=== PATIENT | female | born 1940 | race Caucasian/White ===

== ENCOUNTER 2021-08-24 20:44 | Emergency (ER) | payer MEDICARE, OTHER, SELFPAY ==
[2021-08-24 20:56] VITALS: BP 166/87; PULSE 82; RESP 20; TEMP 36.8; O2SAT 97
--- NOTE | 2021-08-24 21:00 | DI.RAD_ITS ---
Exam(s) XR CHEST 2V PA LATERAL EXAM: XR CHEST 2V PA LATERAL CLINICAL HISTORY: tachy 2 days ago. TECHNIQUE: 2D digital imaging was performed. COMPARISON: No exams were available for comparison FINDINGS: Heart size is normal. The mediastinum is not widened. Pulmonary hyperinflation again noted. No new infiltrates nor pleural effusions. No pulmonary edema. IMPRESSION: No acute pulmonary findings.Hyperinflation. No significant change compared to 08/24/2021. DATA REPOSITORY: RADIATION DOSE DELIVERED:
--- NOTE | 2021-08-24 21:00 | RT.EKG_ITS ---
APPROVED REPORT Exam: Resting ECG Reason for Exam: tachy Patient Location: E HR:80 bpm ECG Measurements Heart Rate 80 AXIS SC 156 P 52 QRSd 97 QRS -51 QT 396 T 39 QTc 458 Conclusion Sinus rhythm...normal P axis, V-rate 60- 99 Left anterior fascicular block...axis(240,-40), init forces inf
[2021-08-24 21:01] VITALS: RESP 18
[2021-08-24 21:23] LABS: Abs Immature Grans 0.01 10^3/uL (0.0-0.06); Absolute Basophil Count 0.03 10^3/uL (0.0-0.2); Absolute Eosinophil Count 0.07 10^3/uL (0.0-0.7); Absolute Lymphocyte Count 1.43 10^3/uL (1.2-3.4); Absolute Monocyte Count 0.52 10^3/uL (0.1-0.8); Absolute Neutrophil Count 4.91 10^3/uL (1.2-6.7); Basophils % 0.4; HCT 44.1 % (36.0-46.0); HGB 14.2 g/dL (11.2-15.7); Immature Grans % 0.1; Lymphocytes % 20.5; MCH 30.3 pg (27.0-33.0); MCHC 32.2 % (32.0-36.0); MCV 94.2 fL (80-95); MPV 11.2 fL (8.0-11.0); Monocytes % 7.5; Neutrophils % 70.5; Nucleated RBC 0 %; Platelet Count 187 10^3/uL (130-400); RBC 4.68 10^6/uL (3.93-5.22); RDW 13.2 % (11.7-14.6); RDW-SD 45.5 fL; WBC 6.97 10^3/uL (4.4-10.8)
--- NOTE | 2021-08-24 21:36 | ED.GENADUL_ITS ---
Discharge Plan Disposition Patient Disposition: HOME Condition: Stable Discharge Details Clinical Impression: Tachycardia Primary Care Provider: Unknown,Unknown ED Provider: Elmer Mcbride Home Meds and New Rx's Prescriptions: Continued Support Hose 1 ea Topical DAILY Qty: 2 RF: 1 (DME) FreeStyle Test 1 EACH strip 1 ea Miscellaneous DAILY Qty: 1 RF: 1 No Action PreserVision AREDS-2 250-90-40-1 mg capsule 1 tab PO BID RF: 0 Discharge Instructions Instructions: Tachycardia (ED) Additional Instructions: Work-up in the ER does not reveal any obvious emergent process. I have completed the paperwork for a Holter monitor, you will be contacted tomorrow to set this up. I have also placed you on the care management list to help expedite outpatient primary care follow-up. Please watch for new or worsening symptoms and return to the ER for any concerns. Discharge Data Discharge Date/Time-TO BE ENTERED AT DEPARTURE: 08/24/21 23:30 Medical Decision Making This is an 81-year-old female, denies significant past medical history, reports that her heart rate and blood pressure were elevated on 08-22. Nothing preceded the symptoms. Patient is currently asymptomatic. Clinically she appears well, nontoxic, slightly hypertensive but otherwise unremarkable. Patient is agreeable to initiating a cardiac work-up, given the duration of her symptoms, I believe a single troponin and EKG is reasonable. We will also obtain thyroid studies as well as a D-dimer. Laboratory values reveal a D-dimer slightly elevated at 953 otherwise unremarkable, troponin less than 0.05, no leukocytosis, TSH of 2.41. Chest x-ray does not reveal any obvious emergent process. Given the slightly elevated D-dimer will obtain CTA of the chest. CTA unremarkable for PE., mild atelectasis present. Discussed work-up with patient. She remains asymptomatic, blood pressure trending downward nicely. She has no additional questions or concerns and is comfortable discharge at this time. I will place her on the care management list to help expedite outpatient primary care follow-up. Strict discharge and return precautions provided. This documentation was generated using Foxwordyation system, please disregard any oddities of phrase or misspellings. Medical Records Medical records reviewed: Yes I reviewed the patient's medical records. Imaging Data Radiologic Study: Attestation: I personally reviewed and interpreted this imaging study as follows: Imaging: CT Scan Radiologist's impression: PROCEDURE INFORMATION: Exam: CTA Chest With Contrast Exam date and time: 08/24/2021 21:59 Age: 81 years old Clinical indication: Abnormal findings; Abnormal diagnostic tests; Elevated d- dimer; Shortness of breath; Patient HX: SOB, elevated d dimer TECHNIQUE: Imaging protocol: Computed tomographic angiography of the chest with contrast. 3D rendering (Not supervised by radiologist): MIP and/or 3D reconstructed images were created by the technologist. Radiation optimization: All CT scans at this facility use at least one of these dose optimization techniques: automated exposure control; mA and/or kV adjustment per patient size (includes targeted exams where dose is matched to clinical indication); or iterative reconstruction. Contrast material: OMNIPAQUE 350; Contrast volume: 70 ml; Contrast route: INTRAVENOUS (IV); COMPARISON: CR XR CHEST 2V PA LATERAL 08/24/2021 21:55 FINDINGS: Pulmonary arteries: No pulmonary emboli. Aorta: No aortic aneurysm. No aortic dissection. Lungs: Mild dependent subsegmental atelectasis. No airspace consolidation. Minimal scattered ground-glass densities. Pleural spaces: No pneumothorax. No pleural effusion. Heart: No cardiomegaly. No pericardial effusion. Lymph nodes: No enlarged lymph nodes. Adrenal glands: Thickened adrenal glands without measurable nodules, likely hypertrophy. Bones/joints: Degenerative changes in the spine. No acute fracture or subluxation. JUAN SO Preliminary Radiology Report SENIOR TRIAL ATTORNEY (QA) DISCREPANCY? If there is a discrepancy between the preliminary and final interpretation, please notify [facility] via [email or web address]. If you do not have access to our QA portal, call our QA team at [phone] CONFIDENTIALITY STATEMENT This report is intended only for the use of the referring physician, and only in accordance with law, If you received this in error, call [phone] Page 2 of 2 Soft tissues: No suspicious lesions. IMPRESSION: 1. No pulmonary emboli are seen. 2. Mild dependent subsegmental atelectasis. Minor scattered ground-glass densities most likely represent minor edema or microatelectasis, much less likely atypical infection. Radiologic Study #2: Attestation: I personally reviewed and interpreted this imaging study as follows: Imaging: X-Ray Radiologist's impression: PROCEDURE INFORMATION: Exam: XR Chest Exam date and time: 08/24/2021 21:05 Age: 81 years old Clinical indication: Other: Tachy 2 days ago TECHNIQUE: Imaging protocol: XR of the chest. Views: 2 views. COMPARISON: CR CERV SP.WITH OBL OR FLEX/EXT 09/09/2016 16:02 FINDINGS: Lungs: Mild hyperinflation without airspace consolidation. Pleural spaces: No pleural effusion. No pneumothorax. Heart/Mediastinum: No cardiomegaly. Bones/joints: No acute fracture. IMPRESSION: Mild hyperinflation without airspace consolidation. Lab Data Lab results reviewed: Yes I reviewed the patient's lab results. Labs: Laboratory Tests Range/Units 08/24/21 08/24/21 08/24/21 21:18 21:18 21:18 WBC (4.4-10.8) 10^3/uL 6.97 RBC (3.93-5.22) 10^6/uL 4.68 Hgb (11.2-15.7) g/dL 14.2 Hct (36.0-46.0) % 44.1 MCV (80-95) fL 94.2 MCH (27.0-33.0) pg 30.3 MCHC (32.0-36.0) % 32.2 RDW (11.7-14.6) % 13.2 Plt Count (130-400) 10^3/uL 187 MPV (8.0-11.0) fL 11.2 H Immature Gran % 0.1 Neutrophils % 70.5 Lymphocytes % 20.5 Monocytes % 7.5 Eosinophils % 1.0 Basophils % 0.4 Nucleated RBC % % 0 Absolute Neutrophils (1.2-6.7) 10^3/uL 4.91 Absolute Lymphocytes (1.2-3.4) 10^3/uL 1.43 Absolute Monocytes (0.1-0.8) 10^3/uL 0.52 Absolute Eosinophils (0.0-0.7) 10^3/uL 0.07 Absolute Basophils (0.0-0.2) 10^3/uL 0.03 PT (9.3-11.0) sec 10.6 INR (0.9-1.1) 1.1 APTT (21.0-27.5) sec 25.1 D-Dimer (<500) ng/mlFEU 953 H Sodium (136-145) mmol/L 144 Potassium (3.5-5.1) mmol/L 3.7 Chloride (98-107) mmol/L 107 Carbon Dioxide (21.0-32.0) mmol/L 30.5 Anion Gap (3-11) mmol/L 6.5 BUN (7-18) mg/dL 16 Creatinine (0.55-1.02) mg/dL 0.7 Estimated GFR/1.73 m2 (mL/min/1.73m2) >= 60.00 Glucose (74-106) mg/dL 110 H Calcium (8.5-10.1) mg/dL 8.8 Magnesium (1.8-2.4) mg/dL 1.9 Total Bilirubin (0.2-1.0) mg/dL 0.5 AST (15-37) U/L 15 ALT (14-59) U/L 16 Alkaline Phosphatase (46-116) U/L 86 Troponin I (<0.06) ng/mL < 0.05 Total Protein (6.4-8.2) g/dL 7.3 Albumin (3.4-5.0) g/dL 3.7 TSH (0.36-3.74) uIU/mL Range/Units 08/24/21 21:18 WBC (4.4-10.8) 10^3/uL RBC (3.93-5.22) 10^6/uL Hgb (11.2-15.7) g/dL Hct (36.0-46.0) % MCV (80-95) fL MCH (27.0-33.0) pg MCHC (32.0-36.0) % RDW (11.7-14.6) % Plt Count (130-400) 10^3/uL MPV (8.0-11.0) fL Immature Gran % Neutrophils % Lymphocytes % Monocytes % Eosinophils % Basophils % Nucleated RBC % % Absolute Neutrophils (1.2-6.7) 10^3/uL Absolute Lymphocytes (1.2-3.4) 10^3/uL Absolute Monocytes (0.1-0.8) 10^3/uL Absolute Eosinophils (0.0-0.7) 10^3/uL Absolute Basophils (0.0-0.2) 10^3/uL PT (9.3-11.0) sec INR (0.9-1.1) APTT (21.0-27.5) sec D-Dimer (<500) ng/mlFEU Sodium (136-145) mmol/L Potassium (3.5-5.1) mmol/L Chloride (98-107) mmol/L Carbon Dioxide (21.0-32.0) mmol/L Anion Gap (3-11) mmol/L BUN (7-18) mg/dL Creatinine (0.55-1.02) mg/dL Estimated GFR/1.73 m2 (mL/min/1.73m2) Glucose (74-106) mg/dL Calcium (8.5-10.1) mg/dL Magnesium (1.8-2.4) mg/dL Total Bilirubin (0.2-1.0) mg/dL AST (15-37) U/L ALT (14-59) U/L Alkaline Phosphatase (46-116) U/L Troponin I (<0.06) ng/mL Total Protein (6.4-8.2) g/dL Albumin (3.4-5.0) g/dL TSH (0.36-3.74) uIU/mL 2.41 ECG Data Attestation: I personally reviewed and interpreted this ECG (s) as follows: Interpretation: Please see official report by Dr. Yepez. Sinus rhythm, ventricular rate of 80. No STEMI HPI General Mode of arrival: ambulatory . Date/Time Provider Initiated Documentation: 08/24/21 20:53 . Limitations to Documentation: no limitations . Information obtained by: patient . HPI Narrative: This is a 81-year-old female, denies significant past medical history, presenting to the ER today for concern of tachycardia and hypertension on 08-22. On 08-22, blood pressure as high as 181/98 with a pulse of 129. Today blood pressure as high as 172/97 with a heart rate of 95. Patient is currently asymptomatic. She has been checking her blood pressure and heart rate at home regularly. She reported lightheadedness to triage but denies lightheadedness to me. Patient is currently asymptomatic. Denies headache, visual changes, neck pain, chest pain, shortness of breath, abdominal pain, nausea, vomiting, back pain, pain or swelling her legs. She denies any history of DVT, PE, cardiac history or pulmonary history. Patient states that she has not seen her primary care provider in 3 years and therefore they want her to be a new patient and needs to fill out paperwork before she can be seen by them. Related Data Home Medications Medication Instructions Recorded Confirmed FreeStyle Test #1 bottle 01/18/18 vit C 250 mg-vit E 90 mg-zinc 40 1 tab PO BID 08/25/21 mg-copper 1 oz-[id number] capsule Allergies Allergy/AdvReac Type Severity Reaction Status Date / Time tetanus and diphtheria Allergy Intermediate red, Verified 08/25/21 15:42 toxoids swollen arm cyclobenzaprine AdvReac Intermediate Dry Mouth Verified 08/25/21 15:42 oxycodone HCl [From Percocet] AdvReac GI UPSET Verified 08/25/21 15:42 General Stated Complaint: GenMedical ROSA M: 3 Review of Systems Constitutional Constitutional: Denies fatigue, Denies fever(s) and Denies headache(s) Eyes Eyes: Denies change in vision ENT Ears, Nose, Mouth, and Throat: Denies headache(s) and Denies neck pain Cardiovascular Cardiovascular: Denies chest pain and Denies dyspnea Respiratory Respiratory: Denies cough and Denies dyspnea Gastrointestinal Gastrointestinal: Denies abdominal pain, Denies nausea and Denies vomiting Genitourinary Genitourinary: Denies dysuria Musculoskeletal Musculoskeletal: Denies back pain, Denies neck pain, Denies numbness and Denies tingling Integumentary/Breasts Skin/Breast: Denies rash Neurologic Neurologic: Denies headache(s), Denies numbness and Denies tingling Endocrine Endocrine: Denies fatigue [facility] Medical History Abnormal auditory perception (01/11/17) Arthritis Neck, hands, back BMI 34.0-34.9,adult 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 Rojas cystoscopy negative 2015 Recommended repeat UA annually & repeat workup if persistent 3-5 years Osteoarthritis (06/04/15) neck, spine, hands Other hyperlipidemia (06/20/15) LDL >190; CV risk 16.7%, declines meds Stasis dermatitis of both legs (06/04/15) Umbilical hernia (06/04/15) Surgical History Excision, Pilonidal Cyst 1960 Extraction of cataract (07/16/15) Dr. Rae. Right eye with intraocular lens implant Tonsillectomy 1945 Family History Mother , Pulmonary Fibrosis at age 97. Diabetes Osteoporosis Arthritis Constipation Asthma Father , Cancer; bowel at age 64. Diabetes Asthma Other Cancer Social History Smoking/Tobacco Use Status: Never Smoking risk assessment performed?: Yes Alcohol Intake: never Drug use: Never Do you feel safe at home: Yes Do you feel safe in your relationship?: Yes Exam Const General: cooperative, healthy appearing, comfortable and no acute distress Orientation: alert, awake and oriented x3 [facility] Head: normal to inspection, normocephalic and atraumatic Face and sinus: normal facial exam Mouth: oral mucosae normal and moist mucous membranes Eyes General: appearance normal, both eyes and all related structures Conjunctivae: conjunctivae normal Neck Neck: normal visual inspection, full ROM, trachea midline and supple Resp Effort & Inspection: normal respiratory effort and able to speak in complete sentences Auscultation: clear to auscultation bilaterally Cardio Rate: regular rate Rhythm: regular rhythm GI Palpation: soft, not firm, no guarding, no pulsatile masses and nontender Back/Spine/Pelvis Back: No back tenderness Skin General skin exam: no rashes or lesions noted Neuro General: patient alert, patient awake, patient oriented x3, moves all extremities and no focal motor deficits Cognition: normal cognition Speech: speech normal Gait: normal gait Motor: muscle tone normal throughout Sensory Exam: no sensory deficits noted Extrem General: normal to inspection, full ROM, capillary refill normal, no pedal edema and no calf tenderness Psych Appearance: grossly normal Mental Status: mental status grossly normal Course Vital Signs Vital signs: Vital Signs Temperature 36.8 C 08/24/21 20:56 Pulse 82 08/24/21 20:56 Respiratory Rate 20 08/24/21 20:56 Blood Pressure 166/87 H 08/24/21 20:56 Pulse Oximetry 97 08/24/21 20:56 Temperature 36.8 C 08/24/21 20:56 Pulse 82 08/24/21 20:56 Respiratory Rate 18 08/24/21 21:01 Respiratory Effort Non-Labored 08/24/21 21:01 Respiratory Depth Normal 08/24/21 21:01 Respiratory Pattern Normal 08/24/21 21:01 Blood Pressure 166/87 H 08/24/21 20:56 Blood Pressure Position Sitting 08/24/21 20:56 Pulse Oximetry 97 08/24/21 20:56 Pain Level 0 08/24/21 20:56 Lab/Test Results Lab/Test Results: Laboratory Tests Range/Units 08/24/21 21:18 WBC (4.4-10.8) 10^3/uL 6.97 RBC (3.93-5.22) 10^6/uL 4.68 Hgb (11.2-15.7) g/dL 14.2 Hct (36.0-46.0) % 44.1 MCV (80-95) fL 94.2 MCH (27.0-33.0) pg 30.3 MCHC (32.0-36.0) % 32.2 RDW (11.7-14.6) % 13.2 Plt Count (130-400) 10^3/uL 187 MPV (8.0-11.0) fL 11.2 H Immature Gran % 0.1 Neutrophils % 70.5 Lymphocytes % 20.5 Monocytes % 7.5 Eosinophils % 1.0 Basophils % 0.4 Nucleated RBC % % 0 Absolute Neutrophils (1.2-6.7) 10^3/uL 4.91 Absolute Lymphocytes (1.2-3.4) 10^3/uL 1.43 Absolute Monocytes (0.1-0.8) 10^3/uL 0.52 Absolute Eosinophils (0.0-0.7) 10^3/uL 0.07 Absolute Basophils (0.0-0.2) 10^3/uL 0.03
[2021-08-24 21:39] LABS: ALT 16 U/L (14-59); AST 15 U/L (15-37); Albumin 3.7 g/dL (3.4-5.0); Alkaline Phosphatase 86 U/L (46-116); Anion Gap 6.5 mmol/L (3-11); BUN 16 mg/dL (7-18); Bilirubin, Total 0.5 mg/dL (0.2-1.0); CO2 30.5 mmol/L (21.0-32.0); CREATININE 0.7 mg/dL (0.55-1.02); Calcium 8.8 mg/dL (8.5-10.1); Chloride 107 mmol/L (98-107); Glucose 110 mg/dL (74-106); Magnesium 1.9 mg/dL (1.8-2.4); Potassium 3.7 mmol/L (3.5-5.1); Sodium 144 mmol/L (136-145); Total Protein 7.3 g/dL (6.4-8.2)
[2021-08-24 21:40] LABS: Troponin I < 0.05 ng/mL (<0.06)
[2021-08-24 21:41] LABS: INR 1.1 (0.9-1.1); PTT Activated 25.1 sec (21.0-27.5); Prothrombin Time 10.6 sec (9.3-11.0)
[2021-08-24 21:44] LABS: TSH (W/Ref FT4) 2.41 uIU/mL (0.36-3.74)
--- NOTE | 2021-08-24 21:45 | DI.CT_ITS ---
Exam(s) CT CHEST PE CTA EXAM: CT CHEST PE CTA CLINICAL HISTORY: tachy, elevated dimer. TECHNIQUE: Imaging Protocol: CT angiography of the chest was performed using pulmonary embolus tristin col. Multi planar reconstructions were performed. CONTRAST MATERIAL: Intravenous: Omnipaque 350 Contrast volume: 70 cc COMPARISON: Chest x-ray 08/24/2021 FINDINGS: PULMONARY ARTERIES: There are no intraluminal filling defects to suggest the presence of acute pulmon jose m emboli. LUNGS: Mild increased markings are noted in the medial aspect of the posterior basal segment of the r ight lower lobe. There are no pleural effusions. No nodules evident in the right lung. There is a suggestion of a 6 mm nodule in the lateral basal segment of the left lower lobe. There are no pleural effusions. MEDIASTINUM: There is no hilar nor mediastinal adenopathy. Visualized thyroid unremarkable. CARDIAC: Heart size is upper normal. There is no pericardial effusion.Caliber of the thoracic aorta is within normal limits. There is no significant shift of the interventricular septum. PARTIALLY VISUALIZED UPPERMOST ABDOMEN: Mild thickening of the genu of the left adrenal gland noted, possibly small adenoma. Spleen size normal OSSEOUS: No significant osseous lesions.. IMPRESSION: 1. No evidence of acute pulmonary emboli. No evidence of pulmonary infarction.No pleural effusions. 2. No intrathoracic adenopathy. 3. Heart size upper normal. RADIATION DOSE DELIVERED: 382.38mGy.cm Total DLP DATA REPOSITORY: All CT scans at this facility are submitted to the National Radiology Data Registry (NRDR) Dose Index Registry (DIR) with the [employer] (ACR). RADIATION OPTIMIZATION: All CT scans at this facility use at least one of these dose optimization te chniques: automated exposure control; mA and/or kV adjustment per patient size (includes targeted exa ms where dose is matched to clinical indication); or iterative reconstruction.
--- NOTE | 2021-08-24 21:50 | NUR.NOTE ---
Referral to Care Management to help re-establish pcp at [facility]. She hasn't been seen in a few years and they will only see her as a new patient. (per patient). Dx Tachycardia. [facility] provider would like her seen sooner rather than later.Nursing Note:
[2021-08-24 21:55] LABS: D-Dimer 953 ng/mlFEU (<500)
[2021-08-24] MEDS: Omnipaque 350 MG/ML 100 ML BTL IJ (22:19)
[2021-08-24] MEDS: Normal Saline Flush 10 ML SYR IVP (22:22)
--- NOTE | 2021-08-24 22:57 | DI.VRAD_ITS ---
PROCEDURE INFORMATION: Exam: CTA Chest With Contrast Exam date and time: 08/24/2021 21:59 Age: 81 years old Clinical indication: Abnormal findings; Abnormal diagnostic tests; Elevated d-dimer; Shortness of breath; Patient HX: SOB, elevated d dimer TECHNIQUE: Imaging protocol: Computed tomographic angiography of the chest with contrast. 3D rendering (Not supervised by radiologist): MIP and/or 3D reconstructed images were created by the technologist. Radiation optimization: All CT scans at this facility use at least one of these dose optimization techniques: automated exposure control; mA and/or kV adjustment per patient size (includes targeted exams where dose is matched to clinical indication); or iterative reconstruction. Contrast material: OMNIPAQUE 350; Contrast volume: 70 ml; Contrast route: INTRAVENOUS (IV); COMPARISON: CR XR CHEST 2V PA LATERAL 08/24/2021 21:55 FINDINGS: Pulmonary arteries: No pulmonary emboli. Aorta: No aortic aneurysm. No aortic dissection. Lungs: Mild dependent subsegmental atelectasis. No airspace consolidation. Minimal scattered ground-glass densities. Pleural spaces: No pneumothorax. No pleural effusion. Heart: No cardiomegaly. No pericardial effusion. Lymph nodes: No enlarged lymph nodes. Adrenal glands: Thickened adrenal glands without measurable nodules, likely hypertrophy. Bones/joints: Degenerative changes in the spine. No acute fracture or subluxation. Soft tissues: No suspicious lesions. IMPRESSION: 1. No pulmonary emboli are seen. 2. Mild dependent subsegmental atelectasis. Minor scattered ground-glass densities most likely represent minor edema or microatelectasis, much less likely atypical infection. Dictated and Authenticated by: Amita Morelos MD. Ordering:DESIRAE Payne MD
--- NOTE | 2021-08-24 22:57 | DI.VRAD_ITS ---
PROCEDURE INFORMATION: Exam: XR Chest Exam date and time: 08/24/2021 21:05 Age: 81 years old Clinical indication: Other: Tachy 2 days ago TECHNIQUE: Imaging protocol: XR of the chest. Views: 2 views. COMPARISON: CR CERV SP.WITH OBL OR FLEX/EXT 09/09/2016 16:02 FINDINGS: Lungs: Mild hyperinflation without airspace consolidation. Pleural spaces: No pleural effusion. No pneumothorax. Heart/Mediastinum: No cardiomegaly. Bones/joints: No acute fracture. IMPRESSION: Mild hyperinflation without airspace consolidation. Dictated and Authenticated by: Amita Morelos MD. Ordering:DESIRAE Payne MD
--- NOTE | 2021-08-24 23:11 | NUR.NOTE ---
Requisition faxed to [facility] for and appt to have a 48hr holter monitor placed for tachycardia.Nursing Note:
[2021-08-24 23:26] VITALS: BP 166/87; PULSE 82; RESP 18; TEMP 36.8; O2SAT 97
== END 2021-08-24 23:30 | disposition home or self-care (01) ==
PROVIDERS: Emergency Provider Physician Assistant
DX: R00.0 Tachycardia, unspecified (principal); R42 Dizziness and giddiness; R79.1 Abnormal coagulation profile
CPT/HCPCS: 71275; 80053; 93005; 99285; 71046; 83735; 84443; 84484; 85025; 85379; 85610; 85730; 93010; 99284; J3490

== ENCOUNTER 2021-08-26 01:28 | Outpatient (RCR) | payer MEDICARE, OTHER, SELFPAY ==
--- NOTE | 2021-08-26 16:15 | HOLTER_ITS ---
APPROVED REPORT Conclusion This is a 48-hour Holter monitor ordered for tachycardia Rhythm throughout was sinus with an average heart rate of 89. Minimum was 44, maximum 123 There were very rare ventricular ectopic beats There were rare atrial premature beats. There were several self-limited atrial runs, the longest of which was 15 beats in duration There was no atrial fibrillation, no high-grade AV block, no pauses greater than 3 seconds No patient symptoms were reported
== END 2021-08-31 23:59 | disposition home or self-care (01) ==
LOC: RT 01:28
PROVIDERS: Visit Provider Nurse Practitioner Adult Health
DX: R00.0 Tachycardia, unspecified (principal)
CPT/HCPCS: 93225

== ENCOUNTER 2021-09-01 10:44 | Outpatient (RCR) | payer MEDICARE, OTHER, MEDICAID, SELFPAY | END 2021-09-30 23:59 | disposition home or self-care (01) | LOC: RT 10:44 | PROVIDERS: PCP Nurse Practitioner Adult Health; Referring Provider Nurse Practitioner Adult Health; Visit Provider Internal Medicine Cardiovascular Disease | DX: R00.0 Tachycardia, unspecified (principal); I49.1 Atrial premature depolarization | CPT/HCPCS: 93227; 93226 ==

== ENCOUNTER 2021-11-25 04:17 | Outpatient (CLI) | payer MEDICARE, OTHER, MEDICAID, SELFPAY ==
[2021-11-25 11:30] LABS: Calculated LDL 195 mg/dL (<100); Cholesterol 247 mg/dL (<200); HDL Cholesterol 38 mg/dL (40-60); Triglyceride 73 mg/dL (<150)
== END 2021-11-25 04:18 | disposition home or self-care (01) ==
LOC: LBO 04:18
PROVIDERS: PCP Nurse Practitioner Adult Health; Visit Provider Nurse Practitioner Adult Health
DX: E78.49 Other hyperlipidemia (principal)
CPT/HCPCS: 36415; 80061

== ENCOUNTER 2022-02-20 18:41 | Outpatient (REF) | payer MEDICARE, OTHER, MEDICAID, SELFPAY ==
[2022-02-20 19:58] LABS: Bilirubin Negative (Negative); Blood Small (Negative); Clarity Clear (Clear); Glucose Negative (Negative); Ketones Trace mg/dL (Negative); Leukocyte Esterase Negative (Negative); Nitrite Negative (Negative); Specific Gravity >= 1.030 (1.005-1.025); Urobilinogen 0.2 EU/dL (Up TO 0.2); pH 5.5 (5-8)
[2022-02-20 20:26] LABS: Bacteria Few HPF (Negative); C & S Indicated? No; Casts Negative LPF (Negative); Crystals Negative HPF (Negative); Epithelial Cells Few HPF (Negative); Mucus Negative (Negative); RBC Negative HPF (0-2); WBC 0-2 HPF (0-5)
== END 2022-02-20 18:42 | disposition home or self-care (01) ==
LOC: LBN 18:41
PROVIDERS: PCP Nurse Practitioner Adult Health; Visit Provider Nurse Practitioner Adult Health
DX: R31.29 Other microscopic hematuria (principal)
CPT/HCPCS: 81003; 81015

== ENCOUNTER 2022-04-20 02:42 | Outpatient (CLI) | payer MEDICARE, OTHER, MEDICAID, SELFPAY ==
[2022-04-20 15:25] LABS: Creatine Kinase 98 U/L (26-192)
[2022-04-20 23:23] LABS: Calculated LDL 135 mg/dL (<100); Cholesterol 193 mg/dL (<200); HDL Cholesterol 40 mg/dL (40-60); Triglyceride 94 mg/dL (<150)
== END 2022-04-20 02:43 | disposition home or self-care (01) ==
LOC: LBO 02:43
PROVIDERS: Absent Provider Nurse Practitioner Adult Health; PCP Nurse Practitioner Adult Health; Referring Provider Nurse Practitioner Adult Health; Visit Provider Nurse Practitioner Adult Health
DX: E78.00 Pure hypercholesterolemia, unspecified (principal); M79.18 Myalgia, other site; Z51.81 Encounter for therapeutic drug level monitoring; E78.49 Other hyperlipidemia
CPT/HCPCS: 36415; 80061; 82550

== ENCOUNTER → 2022-08-24 14:50 | Outpatient (BNVA) | payer MEDICARE, OTHER, MEDICAID, SELFPAY | PROVIDERS: PCP Nurse Practitioner Adult Health; Referring Provider Nurse Practitioner Adult Health; Visit Provider Surgery | DX: K46.9 Unspecified abdominal hernia without obstruction or gangrene (principal) | CPT/HCPCS: 99213 ==

== ENCOUNTER 2023-01-08 02:42 | Outpatient (CLI) | payer MEDICARE, MEDICAID, SELFPAY ==
[2023-01-08 11:04] LABS: Bilirubin Negative (Negative); Blood Trace-lysed (Negative); Clarity Sl Cloudy (Clear); Glucose Negative (Negative); Ketones Trace mg/dL (Negative); Leukocyte Esterase Trace (Negative); Nitrite Negative (Negative); Specific Gravity >= 1.030 (1.005-1.025); Urobilinogen 0.2 mg/dL (Up to 0.2); pH 5.5 (5-8)
[2023-01-08 11:16] LABS: Bacteria Few HPF (Negative); Epithelial Cells Moderate HPF (Negative)
[2023-01-08 11:17] LABS: C & S Indicated? No/Sq. Contamination; Casts Negative LPF (Negative); Mucus Trace (Negative)
[2023-01-08 12:01] LABS: Hemoglobin A1C 5.8 % (<5.7)
[2023-01-08 14:25] LABS: Anion Gap 11.2 mmol/L (3-11); BUN 22 mg/dL (7-18); CO2 28.8 mmol/L (21.0-32.0); CREATININE 0.7 mg/dL (0.55-1.02); Calcium 9.1 mg/dL (8.5-10.1); Calculated LDL 139 mg/dL (<100); Chloride 104 mmol/L (98-107); Cholesterol 194 mg/dL (<200); Estimated GFR 86.83 (mL/min/1.73m2); Glucose 127 mg/dL (74-106); HDL Cholesterol 42 mg/dL (40-60); Potassium 3.5 mmol/L (3.5-5.1); Sodium 144 mmol/L (136-145); Triglyceride 68 mg/dL (<150)
== END 2023-01-08 02:43 | disposition home or self-care (01) ==
LOC: LBO 02:43
PROVIDERS: PCP Nurse Practitioner Adult Health; Referring Provider Nurse Practitioner Adult Health; Visit Provider Nurse Practitioner Adult Health
DX: E78.00 Pure hypercholesterolemia, unspecified (principal); R03.0 Elevated blood-pressure reading, without diagnosis of hypertension; R31.29 Other microscopic hematuria; R73.03 Prediabetes
CPT/HCPCS: 36415; 80048; 80061; 81003; 81015; 83036

== ENCOUNTER 2023-02-11 00:36 | Outpatient (CLI) | payer MEDICARE, MEDICAID, SELFPAY ==
--- NOTE | 2023-02-11 15:15 | DI.CT_ITS ---
Exam(s) CT CHEST WO EXAM: CT CHEST WO CLINICAL HISTORY: F/U 08/24/2021 CT chest ?6mm nodule LLL, ABNL CT CHEST R93.89 TECHNIQUE: Imaging Protocol: Axial computed tomography images with coronal and sagittal reformatted images were created and reviewed CONTRAST MATERIAL: Intravenous: Omnipaque 350 Contrast volume:structured data ml. COMPARISON: CT CT CHEST PE CTA from 08/24/2021 FINDINGS: Pulmonary parenchyma: No consolidation. No dominant measurable mass. Nodule again noted at anterior left lung base measuring 5 millimeters. No additional nodules. Tracheobronchial tree: No bronchiectasis or mucous plugging. Mediastinum and Theresa: No dominant adenopathy or fluid collection. Pleura: No effusion or pneumothorax. Heart: The heart is mildly dilated. Mild coronary artery calcifications are seen. Aorta: Thoracic aorta non-dilated. Tortuous. Mild atherosclerotic changes. Upper abdomen: Unremarkable. Bones: Degenerative changes. Soft tissues: Unremarkable. IMPRESSION: Stable 5 millimeter nodule left lung base. For a low risk patient, no follow-up recommended. Right high risk patient, consider follow-up in 1 year. RADIATION DOSE DELIVERED: 503.88mGy.cm Total DLP DATA REPOSITORY: All CT scans at this facility are submitted to the National Radiology Data Registry (NRDR) Dose Index Registry (DIR) with the [employer] (ACR). RADIATION OPTIMIZATION: All CT scans at this facility use at least one of these dose optimization te chniques: automated exposure control; mA and/or kV adjustment per patient size (includes targeted exa ms where dose is matched to clinical indication); or iterative reconstruction.
== END 2023-02-11 00:56 ==
LOC: DI 00:37
PROVIDERS: PCP Nurse Practitioner Adult Health; Visit Provider Nurse Practitioner Adult Health
DX: R93.89 Abnormal findings on diagnostic imaging of other specified body structures (principal); R91.1 Solitary pulmonary nodule
CPT/HCPCS: 71250

== ENCOUNTER 2023-06-14 03:57 | Outpatient (CLI) | payer MEDICARE, MEDICAID, SELFPAY ==
[2023-06-14 12:52] LABS: Calculated LDL 90 mg/dL (<100); Cholesterol 140 mg/dL (<200); HDL Cholesterol 42 mg/dL (40-60); Triglyceride 44 mg/dL (<150)
[2023-06-14 12:56] LABS: Bilirubin Negative (Negative); Blood Trace-intact (Negative); Clarity Clear (Clear); Glucose Negative (Negative); Ketones Negative (Negative); Leukocyte Esterase Negative (Negative); Nitrite Negative (Negative); Specific Gravity 1.015 (1.005-1.025); Urobilinogen 0.2 mg/dL (Up to 0.2); pH 5.5 (5-8)
[2023-06-14 13:17] LABS: Creatine Kinase 73 U/L (26-192)
[2023-06-14 13:42] LABS: Bacteria Negative HPF (Negative); C & S Indicated? No; Casts Negative LPF (Negative); Crystals Other HPF (Negative); Epithelial Cells Rare HPF (Negative); Mucus Negative (Negative); RBC 0-2 HPF (0-2); WBC Negative HPF (0-5)
== END 2023-06-14 03:58 | disposition home or self-care (01) ==
LOC: LBO 03:58
PROVIDERS: Absent Provider Nurse Practitioner Adult Health; PCP Nurse Practitioner Adult Health; Visit Provider Nurse Practitioner Adult Health
DX: E78.00 Pure hypercholesterolemia, unspecified (principal); R31.29 Other microscopic hematuria; M62.81 Muscle weakness (generalized)
CPT/HCPCS: 36415; 80061; 82550; 81003; 81015

== ENCOUNTER → 2023-10-27 15:09 | Outpatient (BNVA) | payer MEDICARE, MEDICAID, SELFPAY | PROVIDERS: PCP Nurse Practitioner Adult Health; Referring Provider Nurse Practitioner Adult Health; Visit Provider Podiatrist | DX: R73.03 Prediabetes (principal); L60.3 Nail dystrophy; R60.0 Localized edema; M79.674 Pain in right toe(s); M79.675 Pain in left toe(s); R09.89 Other specified symptoms and signs involving the circulatory and respiratory systems; R20.8 Other disturbances of skin sensation; L65.9 Nonscarring hair loss, unspecified; R20.0 Anesthesia of skin | CPT/HCPCS: 11721 ==

== ENCOUNTER 2024-01-31 05:43 | Outpatient (CLI) | payer MEDICARE, MEDICAID, SELFPAY ==
[2024-01-31 11:22] LABS: Abs Immature Grans 0.01 10^3/uL (0.0-0.06); Absolute Basophil Count 0.03 10^3/uL (0.0-0.2); Absolute Eosinophil Count 0.12 10^3/uL (0.0-0.7); Absolute Lymphocyte Count 1.46 10^3/uL (1.2-3.4); Absolute Neutrophil Count 4.26 10^3/uL (1.2-6.7); Basophils % 0.5; Eosinophils % 1.9; HCT 45.6 % (36.0-46.0); HGB 14.8 g/dL (11.2-15.7); Immature Grans % 0.2; Lymphocytes % 23.2; MCH 31.2 pg (27.0-33.0); MCHC 32.5 % (32.0-36.0); MCV 96 fL (80-95); MPV 10.7 fL (8.0-11.0); Monocytes % 6.4; Neutrophils % 67.8; Platelet Count 174 10^3/uL (130-400); RBC 4.74 10^6/uL (3.93-5.22); RDW 13.1 % (11.7-14.6); RDW-SD 46.5 fL; WBC 6.28 10^3/uL (4.4-10.8)
[2024-01-31 11:50] LABS: Hemoglobin A1C 5.7 % (<5.7)
[2024-01-31 12:45] LABS: ALT 21 U/L (14-59); AST 17 U/L (15-37); Albumin 3.8 g/dL (3.4-5.0); Alkaline Phosphatase 90 U/L (46-116); Anion Gap 10.2 mmol/L (3-11); BUN 16 mg/dL (7-18); Bilirubin, Total 0.4 mg/dL (0.2-1.0); CO2 30.8 mmol/L (21.0-32.0); CREATININE 0.6 mg/dL (0.55-1.02); Calcium 9.1 mg/dL (8.5-10.1); Calculated LDL 95 mg/dL (<100); Chloride 105 mmol/L (98-107); Cholesterol 153 mg/dL (<200); Estimated GFR 89.56 (mL/min/1.73m2); Glucose 130 mg/dL (74-106); HDL Cholesterol 47 mg/dL (40-60); Potassium 3.8 mmol/L (3.5-5.1); Sodium 146 mmol/L (136-145); TSH (W/Ref FT4) 2.39 uIU/mL (0.36-3.74); Total Protein 7.6 g/dL (6.4-8.2); Triglyceride 57 mg/dL (<150); Vitamin B12 1023 pg/mL (193-986)
== END 2024-01-31 05:44 | disposition home or self-care (01) ==
LOC: LBO 05:44
PROVIDERS: Absent Provider Nurse Practitioner Adult Health; PCP Nurse Practitioner Adult Health; Referring Provider Nurse Practitioner Adult Health; Visit Provider Nurse Practitioner Adult Health
DX: E78.00 Pure hypercholesterolemia, unspecified; R73.03 Prediabetes; R03.0 Elevated blood-pressure reading, without diagnosis of hypertension; R53.83 Other fatigue; R93.89 Abnormal findings on diagnostic imaging of other specified body structures; K42.9 Umbilical hernia without obstruction or gangrene
CPT/HCPCS: 36415; 80053; 80061; 82607; 83036; 84443; 85025

== ENCOUNTER → 2024-03-15 15:16 | Outpatient (BNVA) | payer MEDICARE, MEDICAID, SELFPAY | PROVIDERS: PCP Nurse Practitioner Adult Health; Referring Provider Nurse Practitioner Adult Health; Visit Provider Podiatrist | DX: R60.0 Localized edema (principal); L60.3 Nail dystrophy; I87.2 Venous insufficiency (chronic) (peripheral); B35.1 Tinea unguium | CPT/HCPCS: 11721 ==

== ENCOUNTER → 2024-07-19 15:20 | Outpatient (BNVA) | payer MEDICARE, MEDICAID, SELFPAY | PROVIDERS: PCP Nurse Practitioner Adult Health; Referring Provider Nurse Practitioner Adult Health; Visit Provider Podiatrist | DX: L60.3 Nail dystrophy (principal); R60.0 Localized edema; B35.1 Tinea unguium; I87.2 Venous insufficiency (chronic) (peripheral); R20.8 Other disturbances of skin sensation; I73.89 Other specified peripheral vascular diseases | CPT/HCPCS: 11721 ==

== ENCOUNTER → 2025-01-08 14:45 | Outpatient (BNVA) | payer MEDICARE, MEDICAID, SELFPAY | PROVIDERS: PCP Nurse Practitioner Adult Health; Referring Provider Nurse Practitioner Adult Health; Visit Provider Podiatrist | DX: L60.3 Nail dystrophy (principal); B35.1 Tinea unguium; I73.89 Other specified peripheral vascular diseases; I87.2 Venous insufficiency (chronic) (peripheral); R60.0 Localized edema; L65.9 Nonscarring hair loss, unspecified; R20.8 Other disturbances of skin sensation; L60.8 Other nail disorders; R23.8 Other skin changes; L60.2 Onychogryphosis | CPT/HCPCS: 11721 ==

== ENCOUNTER 2025-02-01 02:19 | Outpatient (CLI) | payer MEDICARE, SELFPAY ==
[2025-02-01 11:28] LABS: Abs Immature Grans 0.01 10^3/uL (0.0-0.06); Absolute Basophil Count 0.03 10^3/uL (0.0-0.2); Absolute Eosinophil Count 0.08 10^3/uL (0.0-0.7); Absolute Lymphocyte Count 1.22 10^3/uL (1.2-3.4); Absolute Monocyte Count 0.38 10^3/uL (0.1-0.8); Absolute Neutrophil Count 4.19 10^3/uL (1.2-6.7); Basophils % 0.5 %; Eosinophils % 1.4 %; HCT 45.8 % (36.0-46.0); HGB 14.7 g/dL (11.2-15.7); Immature Grans % 0.2 %; Lymphocytes % 20.6 %; MCH 30.9 pg (27.0-33.0); MCHC 32.1 % (32.0-36.0); MCV 96 fL (80-95); MPV 10.5 fL (8.0-11.0); Monocytes % 6.4 %; Neutrophils % 70.9 %; Platelet Count 170 10^3/uL (130-400); RBC 4.76 10^6/uL (3.93-5.22); RDW 12.9 % (11.7-14.6); RDW-SD 46.5 fL; WBC 5.91 10^3/uL (4.4-10.8)
[2025-02-01 11:56] LABS: Hemoglobin A1C 5.7 % (<5.7)
[2025-02-01 12:24] LABS: ALT 19 U/L (14-59); AST 17 U/L (15-37); Albumin 3.8 g/dL (3.4-5.0); Alkaline Phosphatase 95 U/L (46-116); Anion Gap 9.4 mmol/L (3-11); BUN 17 mg/dL (7-18); Bilirubin, Total 0.7 mg/dL (0.2-1.0); CO2 30.6 mmol/L (21.0-32.0); CREATININE 0.6 mg/dL (0.55-1.02); Calcium 9.1 mg/dL (8.5-10.1); Chloride 103 mmol/L (98-107); Estimated GFR 89.01 (mL/min/1.73m2); Folate > 20.0 ng/mL (8.6-20.0); Glucose 116 mg/dL (74-106); Potassium 3.6 mmol/L (3.5-5.1); Sodium 143 mmol/L (136-145); Total Protein 7.5 g/dL (6.4-8.2); Vitamin B12 915 pg/mL (193-986)
== END 2025-02-01 02:20 | disposition home or self-care (01) ==
PROVIDERS: PCP Nurse Practitioner Adult Health; Referring Provider Nurse Practitioner Adult Health; Visit Provider Nurse Practitioner Adult Health
DX: R53.83 Other fatigue (principal); R73.03 Prediabetes
CPT/HCPCS: 36415; 80053; 82607; 82746; 83036; 85025

== ENCOUNTER 2025-02-08 16:48 | Outpatient (REF) | payer MEDICARE, SELFPAY ==
[2025-02-08 20:08] LABS: Calculated LDL 142 mg/dL (<100); Cholesterol 207 mg/dL (<200); HDL Cholesterol 37 mg/dL (>or=50); Triglyceride 140 mg/dL (<150)
== END 2025-02-08 16:49 | disposition home or self-care (01) ==
LOC: LBN 16:48
PROVIDERS: PCP Nurse Practitioner Adult Health; Visit Provider Nurse Practitioner Adult Health
DX: E78.00 Pure hypercholesterolemia, unspecified (principal); B35.1 Tinea unguium; R60.0 Localized edema; R73.03 Prediabetes; R03.0 Elevated blood-pressure reading, without diagnosis of hypertension
CPT/HCPCS: 80061

== ENCOUNTER → 2025-05-28 14:47 | Outpatient (BNVA) | payer MEDICARE, SELFPAY | PROVIDERS: PCP Nurse Practitioner Adult Health; Referring Provider Nurse Practitioner Adult Health; Visit Provider Podiatrist | DX: L60.3 Nail dystrophy (principal); B35.1 Tinea unguium; R60.0 Localized edema; I87.2 Venous insufficiency (chronic) (peripheral); I73.89 Other specified peripheral vascular diseases; R09.89 Other specified symptoms and signs involving the circulatory and respiratory systems; L65.9 Nonscarring hair loss, unspecified; R20.8 Other disturbances of skin sensation; R23.8 Other skin changes; L60.8 Other nail disorders; L60.2 Onychogryphosis | CPT/HCPCS: 11721 ==

== ENCOUNTER 2025-08-02 04:00 | Outpatient (CLI) | payer MEDICARE, SELFPAY ==
[2025-08-02 12:38] LABS: Calculated LDL 125 mg/dL (<100); Cholesterol 179 mg/dL (<200); HDL Cholesterol 39 mg/dL (>or=50); Triglyceride 78 mg/dL (<150)
== END 2025-08-02 04:01 | disposition home or self-care (01) ==
LOC: LBO 04:00
PROVIDERS: PCP Nurse Practitioner Adult Health; Referring Provider Nurse Practitioner Adult Health; Visit Provider Nurse Practitioner Adult Health
DX: E78.00 Pure hypercholesterolemia, unspecified (principal)
CPT/HCPCS: 36415; 80061

== ENCOUNTER 2025-08-16 16:08 | Outpatient (REF) | payer MEDICARE, SELFPAY | END 2025-08-16 16:09 | disposition home or self-care (01) | LOC: LBN 16:08 | PROVIDERS: PCP Nurse Practitioner Adult Health; Visit Provider Emergency Medicine | DX: R30.0 Dysuria (principal); R31.9 Hematuria, unspecified | CPT/HCPCS: 87086 ==

== ENCOUNTER 2025-08-23 16:43 | Outpatient (REF) | payer MEDICARE, SELFPAY ==
[2025-08-23 19:05] LABS: Glucose Negative (Negative)
[2025-08-23 19:13] LABS: RBC >50 HPF (0-2)
== END 2025-08-23 16:44 | disposition home or self-care (01) ==
LOC: LBN 16:43
PROVIDERS: PCP Nurse Practitioner Adult Health; Visit Provider Nurse Practitioner Adult Health
DX: R31.9 Hematuria, unspecified (principal); R10.9 Unspecified abdominal pain; R10.A0 Flank pain, unspecified side
CPT/HCPCS: 81003; 81015; 87086

== ENCOUNTER 2025-08-27 03:35 | Outpatient (CLI) | payer MEDICARE, SELFPAY ==
--- NOTE | 2025-08-27 07:15 | DI.US_ITS ---
Exam(s) US ABDOMEN US RENAL EXAM: US ABDOMEN CLINICAL HISTORY: ? renal mass/stone,abd and flank pain,urinary bleeding,r10.a0,r31.9,r10.9 TECHNIQUE: Ultrasound abdomen performed using standard protocol. COMPARISON: US US RENAL from 08/27/2025 FINDINGS: ABDOMINAL AORTA AND IVC: Visualized portions normal caliber. PANCREAS: Normal where visualized. LIVER: Normal. Hepatopetal flow in the Portal Vein. No evidence of a hepatic mass. The liver measures 18.3cm long. GALLBLADDER:The gallbladder is contracted inflow gallstones. There is a wall echo shadow complex noted. No pericholecystic fluid identified. BILIARY SYSTEM: Common bile duct measures < 7 mm. No intrahepatic biliary ductal dilation. ACOSTA'S SIGN: Negative. KIDNEYS: Kidneys are symmetric in size. No evidence of renal calculi. No evidence of hydronephrosis. There is a 2.1 x 1.9 x 1.8 cm simple cyst in the mid left kidney. No follow-up is recommended. SPLEEN: Not enlarged. ASCITES: None seen. Bladder:Normal. Ureteral jets: Right: Visualized and unremarkable. Left: Visualized and unremarkable. Prevoid vol:93 cc Postvoid vol:0 cc Renal color flow: Symmetric and within normal limits. IMPRESSION: 1. Cholelithiasis. No sonographic evidence of acute cholecystitis. 2. 2.1 cm simple left renal cyst. No follow-up is recommended. 3. Otherwise, unremarkable renal ultrasound. DATA REPOSITORY:
--- NOTE | 2025-08-27 07:15 | DI.US_ITS ---
Exam(s) US PELVIS TRANSVAGINAL EXAM: US PELVIS TRANSVAGINAL CLINICAL HISTORY: ? endometrial or ovarian mass,abd/flank pain,heamturia,r31.9,r10.a0. TECHNIQUE: Transabdominal and transvaginal pelvic ultrasound was performed using standard protocol. COMPARISON: No exams were available for comparison FINDINGS: UTERUS: Position: Anteverted. Size: 10.0 long by 4.5 AP by 5.5 transverse cm Endometrium: 3.1 cm. There is a thickened echogenic endometrium. It appears to be lobulated and masslike extending into the endometrial canal. There is fluid seen within the endometrial canal. It measures 3 cm in length. Myometrium: Unremarkable. Cervix: Unremarkable. OVARIES: The left ovary was not visualized transabdominally or transvaginally. Right: 5.6 x 5.9 x 6.0 cm Cyst or mass: There is a complex cystic mass on the right ovary with internal septations and echogenic foci which may represent calcifications. It measures 5.8 x 5.3 x 5.4 cm. DOPPLER: Color: There is blood flow seen to the right ovary. CUL-DE-SAC: Free fluid: None. Other: None. IMPRESSION: 1. Endometrial mass which extends into the endometrial canal measuring 3.1 x 3 cm. Neoplasm should be considered. Gynecologic consult is recommended. 2. 5.8 x 5.3 x 5.4 cm complex right ovarian mass. Neoplasm should be considered in this patient. Unexpected findings DATA REPOSITORY:
== END 2025-08-27 03:55 ==
LOC: DI 03:36
PROVIDERS: PCP Nurse Practitioner Adult Health; Visit Provider Nurse Practitioner Adult Health
DX: K80.80 Other cholelithiasis without obstruction (principal); R31.9 Hematuria, unspecified; R93.89 Abnormal findings on diagnostic imaging of other specified body structures
CPT/HCPCS: 76770; 76700; 76830; 76856

== ENCOUNTER 2025-08-30 18:17 | Outpatient (CLI) | payer MEDICARE, SELFPAY ==
[2025-08-31 21:12] LABS: CEA 2.9 ng/mL (See Note)
[2025-08-31 21:43] LABS: CA 125 7 U/mL (<30); CA 19-9 14 U/mL (<35)
== END 2025-08-30 18:18 | disposition home or self-care (01) ==
LOC: LBO 18:18
PROVIDERS: PCP Nurse Practitioner Adult Health; Visit Provider Obstetrics & Gynecology
DX: N83.8 Other noninflammatory disorders of ovary, fallopian tube and broad ligament (principal); N94.89 Other specified conditions associated with female genital organs and menstrual cycle; R31.9 Hematuria, unspecified; C76.3 Malignant neoplasm of pelvis
CPT/HCPCS: 36415; 86304; 82378; 86301

== ENCOUNTER → 2025-10-08 15:38 | Outpatient (BNVA) | payer MEDICARE, SELFPAY | PROVIDERS: PCP Nurse Practitioner Adult Health; Referring Provider Nurse Practitioner Adult Health; Visit Provider Podiatrist | DX: L60.3 Nail dystrophy (principal); B35.1 Tinea unguium; R60.0 Localized edema; I87.2 Venous insufficiency (chronic) (peripheral); I73.89 Other specified peripheral vascular diseases; R09.89 Other specified symptoms and signs involving the circulatory and respiratory systems; L65.9 Nonscarring hair loss, unspecified; R20.8 Other disturbances of skin sensation; R23.4 Changes in skin texture; L60.8 Other nail disorders; R23.8 Other skin changes; L60.2 Onychogryphosis; L85.8 Other specified epidermal thickening | CPT/HCPCS: G0127 ==

== ENCOUNTER → 2025-10-18 00:37 | Outpatient (CLI) | payer MEDICARE, SELFPAY ==
--- NOTE | 2025-10-18 | DI.CT_ITS ---
Exam(s) CT CHEST/ABD/PEL W EXAM: CT CHEST/ABD/PEL W CLINICAL HISTORY: ENDOMETRIAL CA, C54.1. TECHNIQUE: Imaging Protocol: Axial computed tomography images with coronal and sagittal reformatted images were created and reviewed. Computer aided detection (CAD) was utilized. CONTRAST MATERIAL: Intravenous: Omnipaque 350 Contrast volume:95 ml Oral: yes, 900 mL Readi-Cat COMPARISON: CT CT CHEST PE CTA from 08/24/[address] CHEST WO from 02/11/2023 US US PELVIS TRANSVAGINAL from 08/27/2025 FINDINGS: CHEST: Pulmonary parenchyma: No consolidation. No dominant measurable mass. No pulmonary nodules. Mild areas of scarring at the lung bases. Tracheobronchial tree: No bronchiectasis. No mucous plugging.No bronchial wall thickening. Pleura: No effusion or pneumothorax. Mediastinum: Within normal limits. Pulmonary arteries: No visible emboli. Cardiovascular: Heart is mildly dilated. Mild coronary artery calcifications. No pericardial effusion. Thoracic aorta non-dilated. Mild atherosclerotic changes. Descending aorta is quite tortuous. Bones: Dextroscoliosis at the thoracolumbar junction no lytic or blastic lesions. No compression fractures. Degenerative disc changes. Soft tissues: Sebaceous cyst anterior to the lower sternum measuring 18 millimeters. ABDOMEN and PELVIS: Liver: Normal density. No suspicious mass. Gallbladder and biliary tract: Faintly visualized gallstones. No evidence of wall thickening. No biliary dilatation. Pancreas: Normal density, no abnormal calcifications or inflammatory process. Spleen: Normal. Kidneys: Normal size, contour and axis. No radiodense stones. No obstructive uropathy. No suspicious masses seen. Adrenal glands: No masses seen. Aorta: Abdominal portion non-dilated. Lymph nodes: Within normal limits. Soft tissues: Fat containing umbilical hernia. Bladder: Unremarkable. Bowel: No obstruction or bowel wall thickening. The appendix is normal. There is diverticulosis of the sigmoid colon but no evidence of diverticulitis. Peritoneal cavity: No ascites. No focal collection. No mesenteric inflammatory response. No free air. Bones: There are severe degenerative changes of both hips. Degenerative changes are also present within the spine. Reproductive organs: There is marked endometrial thickening as noted on prior pelvic ultrasound. There is a cystic right ovarian lesion measuring 6 cm located to the right and posterior to the uterus. There is a solid lesion containing calcifications to the right and anterior to the uterus measuring 4.2 x 4.6 by 5 cm which could represent a pedunculated fibroid versus additional right ovarian mass. The left ovary appears normal. IMPRESSION: No evidence of metastatic disease in the chest abdomen or pelvis. Abnormally thickened endometrium consistent with the diagnosis of endometrial carcinoma. Cystic appearing right ovarian mass has a suspicious appearance on ultrasound. There is an additional solid mass containing calcifications which may arise from the right ovary or from the uterus. RADIATION DOSE DELIVERED: Total DLP DATA REPOSITORY: All CT scans at this facility are submitted to the National Radiology Data Registry (NRDR) Dose Index Registry (DIR) with the [employer] (ACR). RADIATION OPTIMIZATION: All CT scans at this facility use at least one of these dose optimization techniques: automated exposure control; mA and/or kV adjustment per patient size (includes targeted exams where dose is matched to clinical indication); or iterative reconstruction.
[2025-10-18] MEDS: Barium Sulfate 2% W/V-Berry Smoothie 450 ML BTL PO ×2 (12:07→12:08)
[2025-10-18] MEDS: Normal Saline - Diluent 50 ML VIAL IJ (14:05)
[2025-10-18] MEDS: Normal Saline Flush 10 ML SYR IVP (14:05)
[2025-10-18] MEDS: Omnipaque 350 MG/ML 100 ML BTL IJ (14:05)
== END ==
LOC: DI 00:37
PROVIDERS: PCP Nurse Practitioner Adult Health; Visit Provider Obstetrics & Gynecology Gynecologic Oncology
DX: C54.1 Malignant neoplasm of endometrium (principal)
CPT/HCPCS: 74177; 71260; 82565; J3490

== ENCOUNTER 2025-10-30 18:33 | Observation (INO) | payer MEDICARE, SELFPAY ==
[2025-10-30 18:36] VITALS: BP 171/94; PULSE 117; RESP 20; TEMP 36.7; O2SAT 95
--- NOTE | 2025-10-30 18:45 | DI.CT_ITS ---
Exam(s) CT CHEST PE ABD PELVIS W EXAM: CT CHEST PE ABD PELVIS W CLINICAL HISTORY: endometrial ca w/ vag bleed, 1.5 weeks cough, SOB. TECHNIQUE: Imaging Protocol: Axial computed tomography images with coronal and sagittal reformatted images were created and reviewed. Computer aided detection (CAD) was utilized. CONTRAST MATERIAL: Intravenous: Omnipaque 350 Contrast volume:75 ml Oral: no COMPARISON: CT CT CHEST/ABD/PEL W from 10/18/2025 FINDINGS: CHEST: Pulmonary parenchyma: No consolidation. No dominant measurable mass. Tracheobronchial tree: No bronchiectasis. No mucous plugging.No bronchial wall thickening. Pleura: No effusion or pneumothorax. Mediastinum: Within normal limits. Pulmonary arteries: No visible emboli. Cardiovascular: Normal heart size. No pericardial effusion. Thoracic aorta ectatic. Bones: Unre scoliosis and degenerative changes in the thoracic spine. No lytic or blastic lesions. No compression fractures. Soft tissues: Sebaceous cyst noted in the midline at the level of the lower sternum. ABDOMEN and PELVIS: Liver: Normal density. No suspicious mass. Gallbladder and biliary tract: Mild calcification at the gallbladder wall. Tiny gallstones are likely present. No wall thickening. Stable mild biliary dilatation. Pancreas: Normal density, no abnormal calcifications or inflammatory process. Spleen: Normal. Kidneys: Normal size, contour and axis. No radiodense stones. No obstructive uropathy. 2.5 centimeter left renal cyst, unchanged. No follow-up recommended. No suspicious masses seen. Adrenal glands: No masses seen. Aorta: Abdominal portion non-dilated. Atherosclerotic changes. No aneurysm. Mild stenosis at the proximal common iliac arteries. Lymph nodes: Within normal limits. Soft tissues: Fat containing umbilical hernia. Bladder: Unremarkable. Bowel: No obstruction or bowel wall thickening. Appendix is normal. Diverticulosis is noted of the descending and sigmoid colon. No evidence of diverticulitis. Moderate to increased quantity of stool noted in the rectosigmoid. Peritoneal cavity: No ascites. No focal collection. No mesenteric inflammatory response. No free air. Bones: Advanced degenerative changes in the spine and hips. Reproductive organs: Marked endometrial thickening is again noted. The findings appear to have increase when compared the prior exam. Stable 6 centimeter right ovarian cyst. Solid lesion with calcification again noted to the right of the uterus may represent punctate pedunculated fibroid, unchanged. The left ovary is unremarkable. IMPRESSION: No evidence of pulmonary embolism or other acute abnormality in the chest. Abnormal endometrial thickening again noted, consistent with patient's diagnosis of endometrial carcinoma. The endometrial thickening has increased when compared with the previous exam. Findings stable findings of probable pedunculated uterine fibroid and right ovarian cyst. The preliminary [facility] report was reviewed. RADIATION DOSE DELIVERED: 595.48mGy.cm Total DLP DATA REPOSITORY: All CT scans at this facility are submitted to the National Radiology Data Registry (NRDR) Dose Index Registry (DIR) with the [employer] (ACR). RADIATION OPTIMIZATION: All CT scans at this facility use at least one of these dose optimization techniques: automated exposure control; mA and/or kV adjustment per patient size (includes targeted exams where dose is matched to clinical indication); or iterative reconstruction.
--- NOTE | 2025-10-30 19:11 | W.ED.GENAD ---
Discharge Plan Disposition Patient Disposition: Admit to [facility] Condition: Stable Discharge Details Clinical Impression: Endometrial cancer, PMB (postmenopausal bleeding), Mass of right ovary Primary Care Provider: Demetria Pineda ED Provider: Betty Beard Home Meds and New Rx's Prescriptions: No Action PreserVision AREDS-2 250-90-40-1 mg capsule 1 tab PO BID artifi.tears(hypromellose)(PF) 0.3 % drops 1 drp ophthalmic (eye) BID PRN bimatoprost [Latisse] 0.03 % drops with applicator 1 drp topical DAILY vitamin B complex [B Complex-Vitamin B12] Tablet 1 tab PO TID Rx Instructions: 1,000 mcg daily lidocaine 5 % adhesive patch,medicated 1 patch topical DAILY PRN (Reason: neck pain, back pain) Qty: 30 3RF Rx Instructions: leave on most painful area for 12 hrs then remove; may cut to size methylprednisolone [Medrol (Harinder)] 4 mg tablets,dose pack See Rx Instructions PO DIRECTED Qty: 21 0RF Rx Instructions: 1 pack PO as directed; acetaminophen [Tylenol Arthritis Pain] 650 mg tablet extended release 1,300 mg PO Q12H ketoconazole 2 % cream 1 applic topical DAILY Qty: 120 6RF Rx Instructions: Apply to toenails once daily Support Hose 1 ea Topical DAILY Qty: 2 1RF Rx Instructions: on in AM, off HS for stasis dermatitis, venous insufficiency (DME) FreeStyle Test 1 EACH strip 1 ea Miscellaneous DAILY Qty: 1 Rx Instructions: please dispense smallest quantity-to test blood sugars prn R03.0 Pt aware ins may not pay. (DME) PREVAIL WMN UNDERWEAR XLG 28CT See Rx Instructions .Route .MEDSUPPLY Qty: 28 11RF Dose Instruction: USE TO PREVENT SKIN BREAK DOWN NEEDED Rx Instructions: USE TO PREVENT SKIN BREAK DOWN NEEDED rosuvastatin 5 mg tablet 2.5 mg PO HS Qty: 90 3RF HPI General Mode of arrival: ambulatory. Date/Time Provider Initiated Documentation: 10/30/25 18:40. Limitations to Documentation: no limitations. Information obtained by: patient and old records reviewed. HPI Narrative: This is an 85-year-old female patient with a past medical history significant for a recently diagnosed endometrial cancer with a right ovarian mass, history of prediabetes, hyperlipidemia, presenting for evaluation of worsening vaginal bleeding. She reports that her vaginal bleeding has been quite scant, she has been working with [facility] on her recent cancer diagnosis and is potentially going to undergo surgical intervention. She is not currently on any radiation, hormones, or chemotherapeutics. About a week and a half ago she developed an upper respiratory infection, she states that she has had a slightly stuffy nose but has had more chest congestion, cough productive of mucus. Endorses minimal fever, Tmax of 99 degrees. The patient reports that the increased coughing has caused worsening vaginal bleeding. She has intermittently noticed large clots that passed, and has had scant to moderate bleeding on her maxi pad in between. She occasionally gets spikes of pain in her lower abdomen, is currently pain-free and has not identified any propagating factors to this discomfort. No diarrhea or constipation, no nausea or vomiting, no dysuria. Denies hemoptysis. She is not anticoagulated. Related Data Home Medications ?Medication ?Instructions ?Recorded ?Confirmed blood sugar diagnostic (FreeStyle ##1 01/18/18 10/30/25 Test strips) vit C 250 mg-vit E 90 mg-zinc 40 1 tab PO BID 08/25/21 10/30/25 mg-copper 1 [id number] capsule (PreserVision AREDS-2) artifi.tears(hypromellose)(PF) 0.3 1 drp ophthalmic (eye) BID PRN 11/06/21 10/30/25 % eye drops bimatoprost 0.03 % drops with 1 drp topical DAILY 11/06/21 10/30/25 applicator, eyelash base (Latisse) PREVAIL N UNDERWEAR [facility] 28CT #28 ea 03/31/23 10/30/25 ketoconazole 2 % topical cream 1 applic topical DAILY #120 grams 03/15/24 10/30/25 vitamin B complex (B 1 tab PO TID 08/09/24 10/30/25 Complex-Vitamin B12 tablet) rosuvastatin 5 mg tablet 2.5 mg (1/2 x 5 mg) PO HS #90 tabs 02/12/25 10/30/25 acetaminophen 650 mg 1,300 mg PO Q12H 08/08/25 10/30/25 tablet,extended release (Tylenol Arthritis Pain) lidocaine 5 % topical patch 1 patch topical DAILY PRN neck 08/08/25 10/30/25 pain, back pain #30 ea methylprednisolone 4 mg tablets in See Rx Instructions PO DIRECTED 08/08/25 10/30/25 a dose pack (Medrol (Harinder)) #21 tabs Previous Rx's ?Medication ?Instructions ?Recorded PREVAIL WMN UNDERWEAR XLG 28CT #28 ea 03/31/23 ketoconazole 2 % topical cream 1 applic topical DAILY #120 grams 03/15/24 rosuvastatin 5 mg tablet 2.5 mg (1/2 x 5 mg) PO HS #90 tabs 02/12/25 lidocaine 5 % topical patch 1 patch topical DAILY PRN neck 08/08/25 pain, back pain #30 ea methylprednisolone 4 mg tablets in See Rx Instructions PO DIRECTED 08/08/25 a dose pack (Medrol (Harinder)) #21 tabs Allergies Allergy/AdvReac Type Severity Reaction Status Date / Time tetanus and diphtheria Allergy Intermediate red, Verified 10/30/25 18:40 toxoids swollen arm cyclobenzaprine AdvReac Intermediate Dry Mouth Verified 10/30/25 18:40 oxycodone HCl (From Percocet) AdvReac GI UPSET Verified 10/30/25 18:40 General Stated 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 Lung sounds clear and equal bilaterally without wheezes, rhonchi, rales CV: Appears well perfused, heart with tachycardic rate but regular rhythm, strong distal pulses Abdomen: Non-distended, soft, nontender to palpation without rigidity, rebound, or guarding. MSK: Moves 4 extremities without apparent limitation in ROM. No peripheral edema Skin: Visualized skin without rashes, cyanosis. Neuro: Normal Gait, no obvious focal deficits or facial asymmetry. Speaks in full, clear sentences. Psych: Appropriate for situation. Course Vital Signs Vital signs: Vital Signs Temperature 36.7 C 10/30/25 18:36 Pulse 117 H 10/30/25 18:36 Respiratory Rate 20 10/30/25 18:36 Blood Pressure 171/94 H 10/30/25 18:36 Pulse Oximetry 95 10/30/25 18:36 Temperature 36.7 C 10/30/25 18:36 Pulse 117 H 10/30/25 18:36 Respiratory Rate 20 10/30/25 18:36 Blood Pressure 171/94 H 10/30/25 18:36 Blood Pressure Position Sitting 10/30/25 18:36 Pulse Oximetry 95 10/30/25 18:36 Oxygen Delivery Method Room Air 10/30/25 18:36 Oxygen Flow Rate 0 10/30/25 18:36 Medical Decision Making This is an 85-year-old female patient presenting for evaluation of vaginal bleeding in the setting of recently diagnosed endometrial cancer, as well as 1-1/2 weeks of cough with sputum production. My differential includes but is not limited to sequelae of endometrial cancer, coagulopathy, anemia, certainly considered other intra-abdominal pathologies though she has a very benign abdominal examination right now and no urinary tract symptoms. I considered respiratory etiologies including URI, pneumonia, bronchitis, I also certainly considered pulmonary embolism given her tachycardia, low-grade fever, and cancer diagnosis. No evidence of fluid overload on physical examination to suggest pleural effusion or pulmonary edema. The duration of symptoms is such that I do not see that the patient's treatment would change based on viral testing, but certainly we will proceed with labs to include CBC, CMP, magnesium, troponin, PT/PTT, type and screen, and will obtain a CT of the chest for pulmonary embolisms as well as the abdomen and pelvis for abnormalities which might explain her worsening vaginal bleeding. - I independently interpreted the laboratory studies, which show no significant leukocytosis, anemia, or thrombocytopenia. The chemistry panel is without evidence of electrolyte abnormality, kidney dysfunction, or liver injury. INR 1.0, chemistry panel without electrolyte derangement, kidney injury or evidence of liver pathology. Troponin was negative and without interval increase in 1 hour delta recheck to suggest active ischemia. The patient does not require transfusion at this time. I did perform a pelvic examination under the supervision of ZULEIMA Guzman, which does reveal a small amount of dark red vaginal bleeding. Her pad which has been in place for approximately 3 to 4 hours is not saturated. CT scan reviewed by myself, as well as the radiology report. She does not have any evidence of PE or other abnormality in the lungs to explain her recent respiratory illness. Her CT abdomen pelvis demonstrates her endometrial and ovarian mass, with no other abnormalities which might explain her worsening vaginal bleeding. I discussed the case with Dr. Kidd of [facility] at [facility]. She recommends repeating H&H and likely outpatient management given her relatively stable bleeding and evaluation. She does have a telehealth appointment scheduled for tomorrow. - The patient's repeat hemoglobin has dropped from 11.1-8.2, which I do not think is entirely accounted for by the small amount of fluids that I provided. The patient has not had any ongoing large-volume bleeding, and I suspect that she is equilibrating after her clot passage today. I did reach out to the [facility] provider, who recommended admission at our hospital, adding TXA to her norethindrone regimen, and to monitor for significant drops in hemoglobin or large volume bleeding. In that case, the patient would ultimately require transfer to [facility] for IR embolization versus hysterectomy. The GROUP HOME MANAGER provider at our hospital was made aware, but ultimately this patient will be admitted to the hospitalist service for hemoglobin monitoring and medical management of her vaginal bleeding due to endometrial cancer. The patient remained hemodynamically appropriate while under my care with no further large-volume episodes of bleeding. Transferred from our department without incident. Betty Beard MD [facility] All Active Problems (Updated 10/30/25 @ 22:43 by Betty Beard MD) Endometrial cancer (Acute ~09/2025) PMB (postmenopausal bleeding) (Acute ~08/2025) 09/17/25 [facility] GROUP HOME MANAGER - tissue sample collected Mass of right ovary (Acute ~08/2025) Endometrial mass (Acute ~08/2025) Post-menopausal atrophic vaginitis (Acute) Genitourinary bleeding (Acute ~08/2025) Flank pain (Acute) Hematuria (Acute) Onychomycosis (Acute) Toe pain, left (Acute) Toe pain, right (Acute) Nail dystrophy (Acute) Bilateral leg edema (Acute) Hypercholesterolemia with LDL greater than 190 mg/dL (Chronic ~2014) Urge incontinence of urine (Chronic ~01/2022) Incontinence briefs (size XL); uses 1 per day Pre-diabetes (Chronic ~08/2021) 2017 6%; 2020 5.6% Elevated blood-pressure reading without diagnosis of hypertension (Acute ~08/2021) 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 Rojas cystoscopy negative 2015 Recommended repeat UA annually & repeat workup if persistent 3-5 years NEG UA 2021 NEG UA 2022 Other hyperlipidemia (06/20/15) LDL >190; CV risk 16.7%, declines meds Stasis dermatitis of both legs (06/04/15) Umbilical hernia (06/04/15) Gen Surg recommends surgery, but pt wants to wait Arthritis Neck, hands, back BMI 34.0-34.9,adult Surgical History History of tonsillectomy and adenoidectomy Tonsillectomy 1945 Excision, Pilonidal Cyst 1960 Extraction of cataract (07/16/15) B/L Dr. Rae. Right eye with intraocular lens implant Family History Mother , Pulmonary Fibrosis at age 97. Diabetes Osteoporosis Arthritis Constipation Asthma Anxiety Hypertension Cancer Hyperlipidemia Father , Cancer; bowel (suspected) at age 64. Diabetes Asthma Cancer Maternal Grandmother Diabetes Paternal Grandfather Diabetes Social History Smoking/Tobacco Use Status: Never Smoking risk assessment performed?: Yes Alcohol Intake: never Drug use: Never Adopted: No Caregiver/Support person: No Foster care: No Housing: house Number of Children: 0 number of grandchildren: 0 Communication Needs: Hard of Hearing and Corrective Lenses Education Level: college Details: Bachelor's Degree Do you need help understanding health information?: Rarely Pets and animals: No (1) Sexually active: No Do you think of yourself as: straight/heterosexual Current gender identity: female What is your relationship status?: never Do you belong to any clubs or organized social groups?: no Panel score (0-1 are the most socially isolated patients): 0 What type of physical activity do you participate in: irregular exercise Shea/Roman Catholic: Caodaism Special shea needs: No Seatbelt use: always Drive intox or ride w/intox truck driver's offsider: No Do you feel safe at home: Yes Do you feel safe in your relationship?: Yes
[2025-10-30 19:28] LABS: Abs Immature Grans 0.05 10^3/uL (0.0-0.06); HCT 36.2 % (36.0-46.0); HGB 11.7 g/dL (11.2-15.7); Immature Grans % 0.4 %; MCH 30.3 pg (27.0-33.0); MCHC 32.3 % (32.0-36.0); MCV 94 fL (80-95); MPV 10.8 fL (8.0-11.0); Platelet Count 218 10^3/uL (130-400); RBC 3.86 10^6/uL (3.93-5.22); RDW 12.7 % (11.7-14.6); RDW-SD 44.2 fL; WBC 12.23 10^3/uL (4.4-10.8)
[2025-10-30 19:40] LABS: INR 1.0 (0.9-1.1); PTT Activated 23.8 sec (20.6-30.2); Prothrombin Time 10.3 sec (9.1-11.1)
[2025-10-30 19:42] LABS: Troponin I 19 ng/L (<35)
[2025-10-30 19:44] LABS: ALT 9 U/L (10-49); AST 15 U/L (<34); Albumin 4.1 g/dL (3.2-5.0); Alkaline Phosphatase 78 U/L (46-116); Anion Gap 9.8 mmol/L (3-11); BUN 20 mg/dL (9-23); Bilirubin, Total 0.5 mg/dL (0.2-1.2); CO2 27.2 mmol/L (20.0-31.0); Calcium 8.8 mg/dL (8.3-10.6); Chloride 103 mmol/L (98-107); Glucose 134 mg/dL (74-106); Magnesium 1.8 mg/dL (1.6-2.6); Potassium 4.2 mmol/L (3.5-5.1); Sodium 140 mmol/L (136-145); Total Protein 7.0 g/dL (5.7-8.2)
[2025-10-30] MEDS: Omnipaque 350 MG/ML 100 ML BTL IJ (19:51)
[2025-10-30] MEDS: Normal Saline Flush 10 ML SYR IVP ×2 (19:52→21:07)
[2025-10-30] MEDS: Normal Saline - Diluent 50 ML VIAL IJ (19:52)
[2025-10-30 20:36] VITALS: BP 115/61; PULSE 89; PULSE 93; RESP 19; O2SAT 94
[2025-10-30 20:49] LABS: Troponin I 15 ng/L (<35)
--- NOTE | 2025-10-30 20:52 | DI.VRAD_ITS ---
PROCEDURE INFORMATION: Exam: CTA Chest With Contrast CTA Abdomen and Pelvis With Contrast Exam date and time: 10/30/2025 7:52 PM Age: 85 years old Clinical indication: Other: Vag bleeding; Cough and shortness of breath; Endometrial CA w/ vag bleed, 1.5 weeks cough, SOB TECHNIQUE: Imaging protocol: Computed tomographic angiography of the chest with contrast. Exam focused on the arteries. Computed tomographic angiography of the abdomen and pelvis with contrast. Exam focused on the arteries. 3D rendering (Not supervised by radiologist): MIP and/or 3D reconstructed images were created by the technologist. Radiation optimization: All CT scans at this facility use at least one of these dose optimization techniques: automated exposure control; mA and/or kV adjustment per patient size (includes targeted exams where dose is matched to clinical indication); or iterative reconstruction. Contrast material: OMNIPAQUE 350; Contrast volume: 75 ml; Contrast route: INTRAVENOUS (IV); COMPARISON: CT CHEST/ABD/PEL W 10/18/2025 2:04 PM FINDINGS: VASCULATURE: Pulmonary arteries: Normal. No pulmonary emboli. Aorta: Calcified and ectatic abdominal aorta without hemodynamically significant stenosis. Celiac and mesenteric arteries: No occlusion or significant stenosis. Renal arteries: No occlusion or significant stenosis. Right iliac arteries: No occlusion or significant stenosis. Left iliac arteries: No occlusion or significant stenosis. CHEST: Lungs: Unremarkable. No consolidation. No masses. Pleural spaces: Unremarkable. No pneumothorax. No pleural effusion. Heart: Unremarkable. No cardiomegaly. No pericardial effusion. ABDOMEN AND PELVIS: Liver: Mild fatty infiltration of the liver. Gallbladder and biliary ducts: Porcelain gallbladder. Findings suggesting the presence of small gallstones. Prominent common bile duct. Pancreas: Unremarkable. No mass. No ductal dilation. Spleen: Unremarkable. No splenomegaly. Adrenal glands: Unremarkable. No mass. Kidneys and ureters: Bosniak type 1 left renal cyst which measures 2.5 cm by 2.5 cm. No further imaging follow-up is necessary. Stomach and bowel: Constipation. Appendix: No evidence of appendicitis. Intraperitoneal space: Unremarkable. No free air. No significant fluid collection. Urinary bladder: Unremarkable. No mass. Reproductive: Marked endometrial thickening which is abnormal for patient of this age and suspicious for the presence of underlying endometrial carcinoma. Calcified exophytic uterine fibroid measuring 4.4 cm by 3.8 cm. Large right adnexal cystic structure which measures 5.4 cm by 5.4 cm and likely a right ovarian cyst. Ultrasound examination of the pelvis is recommended for further evaluation. Lymph nodes: Unremarkable. No enlarged lymph nodes. Bones/joints: Unremarkable. No acute fracture. Soft tissues: Umbilical hernia. IMPRESSION: 1. Normal CTA examination of the chest. 2. Normal CTA examination of the abdomen and pelvis. 3. Marked endometrial thickening which is abnormal for patient of this age and suspicious for underlying endometrial carcinoma. Ultrasound examination of the pelvis is recommended for further evaluation. 4. Large right adnexal cystic structure for which further evaluation with ultrasound examination of the pelvis is recommended. 5. Calcified exophytic uterine fibroid. 6. Findings suggesting the presence of gallstones in a porcelain gallbladder. 7. Umbilical hernia. Dictated and Authenticated by: Hermelindo Kc MD. Orderin St. Deshawn Hernández MD
[2025-10-30 21:00] VITALS: PULSE 91; RESP 19; O2SAT 96
[2025-10-30] MEDS: Lactated Ringers 500 ML IV (21:06)
[2025-10-30 21:43] LABS: HCT 25.7 % (36.0-46.0); HGB 8.2 g/dL (11.2-15.7)
[2025-10-30] MEDS: Tranexamic Acid 1,000 MG/10 ML VIAL 1000 MG IVP (22:17)
[2025-10-30 22:31] VITALS: BP 135/65; PULSE 88; PULSE 90; RESP 20; O2SAT 95
--- NOTE | 2025-10-30 23:15 | W.PM.HP.N ---
Date of service: 10/30/25 Time of Service: 23:15 Assessment and Plan Assessment and plan (1) Anemia: Status: Chronic Assessment and plan: recheck h/h in am. VSS. No need for xfusion or xfer at this time (2) Endometrial mass: Status: Acute Assessment and plan: Patient has telemetry gynecology appointment tomorrow at 2:00. DVTP with scd and ambulation as pt has had a recent bleed with drop in the Hg History of Present Illness History of Present Illness Chief Complaint: vaginal bleeding Narrative: Mrs Vail is an 85-year-old female who was diagnosed with endometrial cancer and August of last year. Patient is in the midst of getting staged and is pending a hysterectomy. Patient actually has an appointment with her telehealth pharmacy billing adjudicator tomorrow at 2:00. Patient noted multiple blood clots this afternoon and came into the ED for further evaluation and treatment. While she was in the ED she was noted to have a drop in her hemoglobin from 11.7-8.2. Patient vital signs remained stable throughout her ED stay. Dr. Beard ED service reached out to the on-call provider for gynecology at [facility] who did not recommend transfer. Recommended TXA and Norethindrone. Considering the significant drop in hemoglobin Dr. Hess then reached out to our on-call pharmacy billing adjudicator who did not feel that she had a role in this particular case. I was then reached to the ED to admit the patient overnight for reevaluation of her hemoglobin in the AM. Patient's coagulation profile is within normal limits. CT of her chest abdomen and pelvis did show an enlarged endometrial lining a right adnexal mass as well as a porcelain gallbladder with gallstones. The patient denies any right sided abdominal pain at this time. Patient is a DNR/DNI. Her other medical issues include dyslipidemia and dry eyes. The patient does continue to bleed or has worsening H&H, per the ED note she will be excepted in transfer for IR embolization versus hysterectomy. Review of Systems All systems reviewed & are unremarkable except as noted in HPI and below PFSH All Active Problems (Updated 10/30/25 @ 23:22 by Alcides Lim MD) Anemia (Chronic) Endometrial cancer (Acute ~09/2025) PMB (postmenopausal bleeding) (Acute ~08/2025) 09/17/25 [facility] - tissue sample collected Mass of right ovary (Acute ~08/2025) Endometrial mass (Acute ~08/2025) Post-menopausal atrophic vaginitis (Acute) Genitourinary bleeding (Acute ~08/2025) Flank pain (Acute) Hematuria (Acute) Onychomycosis (Acute) Toe pain, left (Acute) Toe pain, right (Acute) Nail dystrophy (Acute) Bilateral leg edema (Acute) Hypercholesterolemia with LDL greater than 190 mg/dL (Chronic ~2014) Urge incontinence of urine (Chronic ~01/2022) Incontinence briefs (size XL); uses 1 per day Pre-diabetes (Chronic ~08/2021) 2018 6%; 2020 5.6% Elevated blood-pressure reading without diagnosis of hypertension (Acute ~08/2021) 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 Rojas cystoscopy negative 2015 Recommended repeat UA annually & repeat workup if persistent 3-5 years NEG UA 2021 NEG UA 2022 Other hyperlipidemia (06/20/15) LDL >190; CV risk 16.7%, declines meds Stasis dermatitis of both legs (06/04/15) Umbilical hernia (06/04/15) Gen Surg recommends surgery, but pt wants to wait Arthritis Neck, hands, back BMI 34.0-34.9,adult Surgical History History of tonsillectomy and adenoidectomy Tonsillectomy 1945 Excision, Pilonidal Cyst 1960 Extraction of cataract (07/16/15) B/L Dr. Rae. Right eye with intraocular lens implant Family History Mother , Pulmonary Fibrosis at age 97. Diabetes Osteoporosis Arthritis Constipation Asthma Anxiety Hypertension Cancer Hyperlipidemia Father , Cancer; bowel (suspected) at age 64. Diabetes Asthma Cancer Maternal Grandmother Diabetes Paternal Grandfather Diabetes Social History Smoking/Tobacco Use Status: Never Smoking risk assessment performed?: Yes Alcohol Intake: never Drug use: Never Adopted: No Caregiver/Support person: No Foster care: No Housing: house Number of Children: 0 number of grandchildren: 0 Communication Needs: Hard of Hearing and Corrective Lenses Education Level: college Details: Bachelor's Degree Do you need help understanding health information?: Rarely Pets and animals: No (1) Sexually active: No Do you think of yourself as: straight/heterosexual Current gender identity: female What is your relationship status?: never Do you belong to any clubs or organized social groups?: no Panel score (0-1 are the most socially isolated patients): 0 What type of physical activity do you participate in: irregular exercise Shea/Synagogue: [employer] Special shea needs: No Seatbelt use: always Drive intox or ride w/intox belly dump driver: No Do you feel safe at home: Yes Do you feel safe in your relationship?: Yes Meds Allergies and Home Medications Allergies Allergy/AdvReac Type Severity Reaction Status Date / Time tetanus and diphtheria Allergy Intermediate red, Verified 10/30/25 18:40 toxoids swollen arm cyclobenzaprine AdvReac Intermediate Dry Mouth Verified 10/30/25 18:40 oxycodone HCl (From Percocet) AdvReac GI UPSET Verified 10/30/25 18:40 Home Medications ?Medication ?Instructions ?Recorded ?Confirmed ?Type Support Hose 1 ea topical DAILY #2 multiple 06/04/15 10/30/25 Clinic units blood sugar diagnostic (FreeStyle ##1 01/18/18 10/30/25 History Test strips) vit C 250 mg-vit E 90 mg-zinc 40 1 tab PO BID 08/25/21 10/30/25 History mg-copper 1 [id number] capsule (PreserVision AREDS-2) artifi.tears(hypromellose)(PF) 0.3 1 drp ophthalmic (eye) BID PRN 11/06/21 10/30/25 History % eye drops bimatoprost 0.03 % drops with 1 drp topical DAILY 11/06/21 10/30/25 History applicator, eyelash base (Latisse) PREVAIL WMN UNDERWEAR XLG 28CT #28 ea 03/31/23 10/30/25 Rx ketoconazole 2 % topical cream 1 applic topical DAILY #120 grams 03/15/24 10/30/25 Rx vitamin B complex (B 1 tab PO TID 08/09/24 10/30/25 History Complex-Vitamin B12 tablet) rosuvastatin 5 mg tablet 2.5 mg (1/2 x 5 mg) PO HS #90 tabs 02/12/25 10/30/25 Rx acetaminophen 650 mg 1,300 mg PO Q12H 08/08/25 10/30/25 History tablet,extended release (Tylenol Arthritis Pain) lidocaine 5 % topical patch 1 patch topical DAILY PRN neck 08/08/25 10/30/25 Rx pain, back pain #30 ea methylprednisolone 4 mg tablets in See Rx Instructions PO DIRECTED 08/08/25 10/30/25 Rx a dose pack (Medrol (Harinder)) #21 tabs Exam Narrative Exam Narrative: HEENT normocephalic atraumatic mucous membranes moist neck no lymphadenopathy no JVD no thyroid megaly Cardiovascular regular rate and rhythm no rubs gallops Abdomen is protuberant bowel sounds x 4 present Extremities no sinus clubbing or edema Neurologic nonfocal Psych alert and orient x 3 Results Labs 10/30/25 21:38 10/30/25 19:13 Labs: Laboratory Results - last 24 hr 10/30/25 10/30/25 10/30/25 19:13 20:15 21:38 WBC 12.23 H RBC 3.86 L Hgb 11.7 8.2 L D Hct 36.2 25.7 L MCV 94 MCH 30.3 MCHC 32.3 RDW 12.7 Plt Count 218 MPV 10.8 Immature Gran % 0.4 Neutrophils % 90.5 Lymphocytes % 4.7 Monocytes % 4.1 Eosinophils % 0.1 Basophils % 0.2 Nucleated RBC % 0.0 Absolute Neutrophils 11.07 H Absolute Lymphocytes 0.57 L Absolute Monocytes 0.50 Absolute Eosinophils 0.01 Absolute Basophils 0.02 PT 10.3 INR 1.0 APTT 23.8 Sodium 140 Potassium 4.2 Chloride 103 Carbon Dioxide 27.2 Anion Gap 9.8 BUN 20 Creatinine 0.82 Est GFR (CKD-EPI 2020) 66.36 Glucose 134 H Calcium 8.8 Magnesium 1.8 Total Bilirubin 0.5 AST 15 ALT 9 L Alkaline Phosphatase 78 Troponin I 19 15 Total Protein 7.0 Albumin 4.1 ABO/Rh A Positive Blood Type Recheck A Positive Antibody Screen NEGATIVE 10/30/25 21:59 WBC RBC Hgb Hct MCV MCH MCHC RDW Plt Count MPV Immature Gran % Neutrophils % Lymphocytes % Monocytes % Eosinophils % Basophils % Nucleated RBC % Absolute Neutrophils Absolute Lymphocytes Absolute Monocytes Absolute Eosinophils Absolute Basophils PT INR APTT Sodium Potassium Chloride Carbon Dioxide Anion Gap BUN Creatinine Est GFR (CKD-EPI 2020) Glucose Calcium Magnesium Total Bilirubin AST ALT Alkaline Phosphatase Troponin I Cancelled Total Protein Albumin ABO/Rh Blood Type Recheck Antibody Screen Last Vital Signs Temp 36.7 C 10/30/25 18:36 Pulse 88 10/30/25 22:31 Resp 20 10/30/25 22:31 BP 135/65 10/30/25 22:31 Pulse Ox 95 10/30/25 22:31 VTE Prohylaxis Risk Level: Moderate/High Risk Contraindications: Active bleed/high bleed risk Prophylaxis: Mechanical and Patient ambulatory Time Spent Time spent with Patient: 40-54 minutes Time was spent: preparing to see the patient(eg.review tests), obtaining and/or reviewing separately otained hiistory, ordering medications,tests, procedures, referring, communicating with other health managed care specialist, indepentently interpreting results, counseling the patient and care coordination
[2025-10-30 23:24] VITALS: BP 131/60; PULSE 82; RESP 18; O2SAT 96
[2025-10-30 23:40] VITALS: BP 131/62; PULSE 92; RESP 16; TEMP 36.9; O2SAT 95
--- NOTE | 2025-10-30 23:45 | W.PC.ACHO ---
Registration Status: REG ER Primary Language: Preferred Language: Persian ED Information & Data Chief Complaint [employer] 10/30/25 19:16 Triage Note Dx Ovarian and endometrial 10/30/25 18:36 Cx last month. no apparent meta. PT concerned about increased bloody vaginal discharge. episodes sharp pain in pelvic/lower abd area. URI symptoms present. PT feeling weak. Medical / Surgical History (Last Reviewed 10/08/25 @ 15:43 by Maricel Murray DPM) Left lower lobe pulmonary nodule (~01/2023) COVID (~11/06/22) Sensorineural hearing loss (SNHL) of both ears Macular degeneration Rapid heart beat Stress incontinence of urine Abnormal auditory perception (01/11/17) History of positive purified protein derivative test (06/04/15) Microscopic hematuria (06/03/16) Other hyperlipidemia (06/20/15) Stasis dermatitis of both legs (06/04/15) Umbilical hernia (06/04/15) Arthritis BMI 34.0-34.9,adult (Last Reviewed 10/08/25 @ 15:43 by Maricel Murray DPM) History of tonsillectomy and adenoidectomy Tonsillectomy Excision, Pilonidal Cyst Extraction of cataract (07/16/15) Most Recent Vital Signs Temperature 36.7 C 10/30/25 18:36 Pulse 88 10/30/25 22:31 Pulse 90 10/30/25 22:31 Respiratory Rate 20 10/30/25 22:31 Blood Pressure 135/65 10/30/25 22:31 Blood Pressure Mean 86 10/30/25 22:31 Blood Pressure Position Sitting 10/30/25 18:36 Pulse Oximetry 95 10/30/25 22:31 Oxygen Delivery Method Room Air 10/30/25 18:36 Oxygen Flow Rate 0 10/30/25 18:36 Pain Level 0 10/30/25 19:23 Allergies tetanus and diphtheria toxoids Allergy (Intermediate, Verified 10/30/25 18:40) red, swollen arm cyclobenzaprine Adverse Reaction (Intermediate, Verified 10/30/25 18:40) Dry Mouth 11/2016 even at 5 mg for neck spasms oxycodone HCl (From Percocet) Adverse Reaction (Verified 10/30/25 18:40) GI UPSET Active Medications Generic Name Dose Route Start Last Admin Trade Name Freq PRN Reason Stop Dose Admin Iohexol 100 ml 10/30/25 20:00 10/30/25 19:51 Omnipaque 350 Mg/Ml 100 Ml Btl IJ 11/29/25 23:59 75 ml DIRECTED KENN Administration Sodium Chloride 0 ml 10/30/25 20:00 10/30/25 21:07 Normal Saline Flush 10 Ml Syr IVP 10 ml BID KENN Administration Sodium Chloride 50 ml 10/30/25 20:00 10/30/25 19:52 Normal Saline - Diluent 50 Ml Vial IJ 50 ml DIRECTED KENN Administration Sodium Chloride 0 ml 10/30/25 19:49 10/30/25 19:52 Normal Saline Flush 10 Ml Syr IVP 10 ml PRN PRN Administration IV IV Catheter Type [Right Saline Lock Antecubital] IV Catheter Gauge [Right 20 Antecubital] Diet Orders Category Date Time Status Regular/Normal [DIET] Nutrition 10/31/25 Breakfast Ordered Diagnostics 10/30/25 10/30/25 10/30/25 Range/Units 21:59 21:38 20:15 WBC (4.4-10.8) 10^3/uL RBC (3.93-5.22) 10^6/uL Hgb 8.2 L D (11.2-15.7) g/dL Hct 25.7 L (36.0-46.0) % MCV (80-95) fL MCH (27.0-33.0) pg MCHC (32.0-36.0) % RDW (11.7-14.6) % Plt Count (130-400) 10^3/uL MPV (8.0-11.0) fL Immature Gran % % Neutrophils % % Lymphocytes % % Monocytes % % Eosinophils % % Basophils % % Nucleated RBC % (0.0-0.3) % Absolute Neutrophils (1.2-6.7) 10^3/uL Absolute Lymphocytes (1.2-3.4) 10^3/uL Absolute Monocytes (0.1-0.8) 10^3/uL Absolute Eosinophils (0.0-0.7) 10^3/uL Absolute Basophils (0.0-0.2) 10^3/uL PT (9.1-11.1) sec INR (0.9-1.1) APTT (20.6-30.2) sec Sodium (136-145) mmol/L Potassium (3.5-5.1) mmol/L Chloride (98-107) mmol/L Carbon Dioxide (20.0-31.0) mmol/L Anion Gap (3-11) mmol/L BUN (9-23) mg/dL Creatinine (0.55-1.02) mg/dL Est GFR (CKD-EPI 2020) (mL/min/1.73m2) Glucose (74-106) mg/dL Calcium (8.3-10.6) mg/dL Magnesium (1.6-2.6) mg/dL Total Bilirubin (0.2-1.2) mg/dL AST (<34) U/L ALT (10-49) U/L Alkaline Phosphatase (46-116) U/L Troponin I Cancelled 15 (<35) ng/L Total Protein (5.7-8.2) g/dL Albumin (3.2-5.0) g/dL ABO/Rh Blood Type Recheck A Positive Antibody Screen 10/30/25 Range/Units 19:13 WBC 12.23 H (4.4-10.8) 10^3/uL RBC 3.86 L (3.93-5.22) 10^6/uL Hgb 11.7 (11.2-15.7) g/dL Hct 36.2 (36.0-46.0) % MCV 94 (80-95) fL MCH 30.3 (27.0-33.0) pg MCHC 32.3 (32.0-36.0) % RDW 12.7 (11.7-14.6) % Plt Count 218 (130-400) 10^3/uL MPV 10.8 (8.0-11.0) fL Immature Gran % 0.4 % Neutrophils % 90.5 % Lymphocytes % 4.7 % Monocytes % 4.1 % Eosinophils % 0.1 % Basophils % 0.2 % Nucleated RBC % 0.0 (0.0-0.3) % Absolute Neutrophils 11.07 H (1.2-6.7) 10^3/uL Absolute Lymphocytes 0.57 L (1.2-3.4) 10^3/uL Absolute Monocytes 0.50 (0.1-0.8) 10^3/uL Absolute Eosinophils 0.01 (0.0-0.7) 10^3/uL Absolute Basophils 0.02 (0.0-0.2) 10^3/uL PT 10.3 (9.1-11.1) sec INR 1.0 (0.9-1.1) APTT 23.8 (20.6-30.2) sec Sodium 140 (136-145) mmol/L Potassium 4.2 (3.5-5.1) mmol/L Chloride 103 (98-107) mmol/L Carbon Dioxide 27.2 (20.0-31.0) mmol/L Anion Gap 9.8 (3-11) mmol/L BUN 20 (9-23) mg/dL Creatinine 0.82 (0.55-1.02) mg/dL Est GFR (CKD-EPI 2020) 66.36 (mL/min/1.73m2) Glucose 134 H (74-106) mg/dL Calcium 8.8 (8.3-10.6) mg/dL Magnesium 1.8 (1.6-2.6) mg/dL Total Bilirubin 0.5 (0.2-1.2) mg/dL AST 15 (<34) U/L ALT 9 L (10-49) U/L Alkaline Phosphatase 78 (46-116) U/L Troponin I 19 (<35) ng/L Total Protein 7.0 (5.7-8.2) g/dL Albumin 4.1 (3.2-5.0) g/dL ABO/Rh A Positive Blood Type Recheck Antibody Screen NEGATIVE Intake and Output - 24 Hour Total 10/30/25 18:33 thru 10/30/25 22:06 Intake Total 500 Balance 500 Weight 77.564 kg Intake: IV 500 Falls Risk Assessment History of Falls No History 10/30/25 18:39 Contributing Factors No Factors 10/30/25 18:39 Ambulatory Aids Independent 10/30/25 18:39 Tubes/Lines None 10/30/25 18:39 Gait Evaluation No gait disturbance 10/30/25 18:39 Cognition No cognitive impairment 10/30/25 18:39 Fall Total Score 0 10/30/25 18:39 Level of Risk Standard/Low Risk 10/30/25 18:39 Problems (Last Reviewed 10/08/25 @ 15:43 by Maricel Murray DPM) Anemia (Chronic) Endometrial mass (Acute ~08/2025) Attestation Statement: By documenting the first initial, last name, and credentials of the reporting nurse below, both parties acknowledge that all relevant information regarding the patient handoff has been communicated, and that all questions have been addressed to ensure continuity and safety of care. Additional Patient Information/Comments: new diagnosis of indometrial canceR on Nov, no chemo or radiation yet, AOX4, on RA, SBA, HGB DROPPED FROM 11.6 to 8.6. pt recieved 1 L LR, Report Received From: Kathy VILLAGOMEZ
--- NOTE | 2025-10-30 23:47 | NUR.NOTE ---
Report given to DAHLIA Clayton and pt transported in up to Med/Surg floor. Pt collected all belongings prior to transfer up to room.
[2025-10-31] MEDS: Rosuvastatin 5 MG TAB 2.5 MG PO (00:46)
[2025-10-31] MEDS: Acetaminophen 325 MG TAB PO (00:46)
[2025-10-31] MEDS: Normal Saline Flush 10 ML SYR IVP ×2 (00:48→09:33)
[2025-10-31 04:16] VITALS: BP 114/62; PULSE 89; RESP 18; TEMP 36.7; O2SAT 93
[2025-10-31 04:18] LABS: Abs Immature Grans 0.03 10^3/uL (0.0-0.06); HCT 29.8 % (36.0-46.0); HGB 9.8 g/dL (11.2-15.7); Immature Grans % 0.4 %; MCH 30.7 pg (27.0-33.0); MCHC 32.9 % (32.0-36.0); MCV 93 fL (80-95); MPV 10.6 fL (8.0-11.0); Platelet Count 184 10^3/uL (130-400); RBC 3.19 10^6/uL (3.93-5.22); RDW 12.9 % (11.7-14.6); RDW-SD 44.2 fL; WBC 8.35 10^3/uL (4.4-10.8)
[2025-10-31 04:37] LABS: ALT 8 U/L (10-49); AST 13 U/L (<34); Albumin 3.4 g/dL (3.2-5.0); Alkaline Phosphatase 67 U/L (46-116); Anion Gap 8.2 mmol/L (3-11); BUN 17 mg/dL (9-23); Bilirubin, Total 0.4 mg/dL (0.2-1.2); CO2 28.8 mmol/L (20.0-31.0); Calcium 7.9 mg/dL (8.3-10.6); Chloride 104 mmol/L (98-107); Glucose 103 mg/dL (74-106); Potassium 3.7 mmol/L (3.5-5.1); Sodium 141 mmol/L (136-145); Total Protein 5.7 g/dL (5.7-8.2)
[2025-10-31 07:30] VITALS: BP 123/59; PULSE 92; RESP 18; TEMP 37.5; O2SAT 94
--- NOTE | 2025-10-31 08:47 | PDOC.CMIN ---
Date of service: 10/31/25 Time of Service: 08:47 Care Management Initial Assmt Initial Assessment Reason for Hospitalization: Vaginal Bleed Functional Status/Living Situation Patient Presentation: Suzy was sitting up in bed and awake when CM met with her. She presented to the ED for evaluation of worsening vaginal bleeding. Per report, she is seeing [facility] oncology. Suzy does have advanced directives on file, listing HCA's. CM requested a palliative consult. Town of Residence: [facility] Medications Medication Management: No Issues/Barriers identified Advance Directives Advance Directives: Do you have an Advance Directive: Y 07/04/15, 15:52 AD On File at [facility]: Y 07/04/15, 15:52 Date Asked 01/13/23 10/10/25, 09:25 AD Date Reviewed 10/30/25 Today, 07:24 COLST On File at [facility] COLST Date Scanned Code Status Resuscitation Status DNR/DNI Portal Pt does not currently have a portal and education provided: Yes Insurance Coverage/Financial Issues Insurance: Medicare Part A & B - [id number] AETNA [place] Ins - [id number] Care Team Visit Care Team Role Provider Type Scarlett Reyes NP MD [facility] STAFF PHYSICIAN Demetria Pineda NP Primary Care Provider NURSE PRACTITIONER Betty Beard MD Emergency Provider [facility] STAFF PHYSICIAN Alcides Lim MD Admit Provider [facility] STAFF PHYSICIAN Attending Provider Discharge Potential Discharge Needs: Consult Consult Services Needed: Palliative and PCP F/U Appt Anticipated Barriers to Discharge: None Identified Patient/Family Education Needs: Review discharge instructions, discuss Ask Me Three Transportation: Private vehicle Plan: Anticipate Suzy will be discharged home once medically ready. It is recommended she follow up with community providers, palliaitive care, and discharge plan of care. She will transport home via private vehicle by family. CM will follow. Social Determinants of Health Screening Social Determinants of health last assessed in clinic: 10/31/25 Will the Patient Participate in the Screening?: Yes Do you worry about having a steady place to live?: no Problems where you live: no known problems In the past 12 months, have you had to go without electric, gas, oil or water in your home?: no 1. Within the past 12 months, we worried whether our food would run out before we got money to buy more.: Never true 2. Within the past 12 months, the food we bought just didn't last and we didn't have money to get more.: Never true Has lack of transportation kept you from medical appointments or from doing things needed for daily living?: no Has anyone in your life made you feel unsafe or unsupported?: no How hard is it for you to pay for the very basics like food, housing, medical care, and heating? Would you say it is:: Not hard at all Do you want help finding or keeping work or a job?: I do not need or want help If for any reason you need help with day-to-day activities such as bathing, preparing meals, shopping, managing finances, etc., do you get the help you need?: I don?t need any help How often do you feel lonely or isolated from those around you?: Never Do you speak a language other than Malagasy at home?: No Does the patient want assistance with any of the above?: No PFSH All Active Problems (Updated 10/30/25 @ 23:22 by Alcides Lim MD) Anemia (Chronic) Endometrial cancer (Acute ~09/2025) PMB (postmenopausal bleeding) (Acute ~08/2025) 09/17/25 [facility]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 Mass of right ovary (Acute ~08/2025) Endometrial mass (Acute ~08/2025) Post-menopausal atrophic vaginitis (Acute) Genitourinary bleeding (Acute ~08/2025) Flank pain (Acute) Hematuria (Acute) Onychomycosis (Acute) Toe pain, left (Acute) Toe pain, right (Acute) Nail dystrophy (Acute) Bilateral leg edema (Acute) Hypercholesterolemia with LDL greater than 190 mg/dL (Chronic ~2014) Urge incontinence of urine (Chronic ~01/2022) Incontinence briefs (size XL); uses 1 per day Pre-diabetes (Chronic ~08/2021) 2018 6%; 2020 5.6% Elevated blood-pressure reading without diagnosis of hypertension (Acute ~08/2021) Osteoarthritis (Chronic 06/04/15) neck, spine, hands Medical History Left lower lobe pulmonary nodule (~01/2023) No f/u needed; stable [id number] COVID (~11/06/22) Sensorineural hearing loss (SNHL) of both ears Amplification b/l Macular degeneration [place] 10/2021 Rapid heart beat Stress incontinence of urine Abnormal auditory perception (01/11/17) 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 Rojas cystoscopy negative 2015 Recommended repeat UA annually & repeat workup if persistent 3-5 years NEG UA 2021 NEG UA 2022 Other hyperlipidemia (06/20/15) LDL >190; CV risk 16.7%, declines meds Stasis dermatitis of both legs (06/04/15) Umbilical hernia (06/04/15) Gen Surg recommends surgery, but pt wants to wait Arthritis Neck, hands, back BMI 34.0-34.9,adult Surgical History History of tonsillectomy and adenoidectomy Tonsillectomy 1945 Excision, Pilonidal Cyst 1960 Extraction of cataract (07/16/15) B/L Dr. Rae. Right eye with intraocular lens implant Family History Mother , Pulmonary Fibrosis at age 97. Diabetes Osteoporosis Arthritis Constipation Asthma Anxiety Hypertension Cancer Hyperlipidemia Father , Cancer; bowel (suspected) at age 64. Diabetes Asthma Cancer Maternal Grandmother Diabetes Paternal Grandfather Diabetes Social History Smoking/Tobacco Use Status: Never Smoking risk assessment performed?: Yes Alcohol Intake: never Drug use: Never Adopted: No Caregiver/Support person: No Foster care: No Housing: house Number of Children: 0 number of grandchildren: 0 Communication Needs: Hard of Hearing and Corrective Lenses Education Level: college Details: Bachelor's Degree Do you need help understanding health information?: Rarely Pets and animals: No (1) Sexually active: No Do you think of yourself as: straight/heterosexual Current gender identity: female What is your relationship status?: never Do you belong to any clubs or organized social groups?: no Panel score (0-1 are the most socially isolated patients): 0 What type of physical activity do you participate in: irregular exercise Shea/Anabaptism: Lutheran Special shea needs: No Seatbelt use: always Drive intox or ride w/intox food mobile driver: No Do you feel safe at home: Yes Do you feel safe in your relationship?: Yes Readmission Within the Past 30 Days Yes or No: No
[2025-10-31] MEDS: Acetaminophen 325 MG TAB 650 MG PO (09:27)
[2025-10-31] MEDS: Vitamins B Comp w/C TAB 1 TAB PO (09:27)
[2025-10-31] MEDS: Lidocaine 5% Patch 1 PATCH TP (09:40)
--- NOTE | 2025-10-31 10:59 | DSE_ITS ---
Date of service: 10/31/25 Time of Service: 11:00 DS: Diagnosis Discharge Diagnosis (1) Anemia: Status: Chronic (2) Endometrial mass: Status: Acute Discharge Plan Disposition Patient Disposition: Home Condition: Fair Discharge Details Reason For Visit: Vaginal Bleed Admit Date/Time: 10/30/25 23:07 Admit Provider: Alcides Lim Attending Provider: Alcides Lim Primary Care Provider: Demetria Pineda Hospital Course Hospital Course: This is an 85-year-old female with a recent diagnosis of endometrial cancer, currently being staged and pending a hysterectomy. She has had worsening vaginal bleeding and presented to the ED after passing multiple blood clots. Her hemoglobin dropped from 11.7 g/dL to 8.2 g/dL during her stay. Her vital signs remained stable throughout the evaluation. The patient is not currently undergoing radiation, chemotherapy, or any antic oagulation therapy. The ED team consulted with the on-call pantograph ii engraver at [facility], who did not recommend transfer at this time. TXA and Norethindrone were recommended. Given the drop in hemoglobin, the patient was admitted for overnight monitoring and re-evaluation of her hemoglobin. Her coagulation profile is within normal limits. A CT of her chest, abdomen, and pelvis showed an enlarged endometrial lining, a right adnexal mass, and a gallbladder with gallstones, though the patient denies any right-sided abdominal pain. The patients vital signs remained stable overnight. Her hemoglobin is 9.8 this morning, increased from 8.2 - no blood products were given. She had scant bleeding overnight. The pantograph ii engraver has recommended outpatient management at this time. They also recommend starting norethindrone 5 mg twice a day. In the event of worsening bleeding patient should contact her pantograph ii engraver or return to the emergency department. The patient is independent, lives at home alone in [facility]. 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 Recommendations for Follow Up Recommended tests to be ordered by follow up provider: H&H 2 days Home Meds and New Rx's Prescriptions: New norethindrone acetate 5 mg tablet 5 mg PO BID Qty: 30 0RF Continued PreserVision AREDS-2 250-90-40-1 mg capsule 1 tab PO BID artifi.tears(hypromellose)(PF) 0.3 % drops 1 drp ophthalmic (eye) BID PRN bimatoprost [Latisse] 0.03 % drops with applicator 1 drp topical DAILY vitamin B complex [B Complex-Vitamin B12] Tablet 1 tab PO TID Rx Instructions: 1,000 mcg daily lidocaine 5 % adhesive patch,medicated 1 patch topical DAILY PRN (Reason: neck pain, back pain) Qty: 30 3RF Rx Instructions: leave on most painful area for 12 hrs then remove; may cut to size methylprednisolone [Medrol (Harinder)] 4 mg tablets,dose pack See Rx Instructions PO DIRECTED Qty: 21 0RF Rx Instructions: 1 pack PO as directed; acetaminophen [Tylenol Arthritis Pain] 650 mg tablet extended release 1,300 mg PO Q12H ketoconazole 2 % cream 1 applic topical DAILY Qty: 120 6RF Rx Instructions: Apply to toenails once daily Support Hose 1 ea Topical DAILY Qty: 2 1RF Rx Instructions: on in AM, off HS for stasis dermatitis, venous insufficiency (DME) FreeStyle Test 1 EACH strip 1 ea Miscellaneous DAILY Qty: 1 Rx Instructions: please dispense smallest quantity-to test blood sugars prn R03.0 Pt aware ins may not pay. (DME) PREVAIL WMN UNDERWEAR XLG 28CT See Rx Instructions .Route .MEDSUPPLY Qty: 28 11RF Dose Instruction: USE TO PREVENT SKIN BREAK DOWN NEEDED Rx Instructions: USE TO PREVENT SKIN BREAK DOWN NEEDED rosuvastatin 5 mg tablet 2.5 mg PO HS Qty: 90 3RF Discharge Instructions Instructions: Norethindrone Additional Instructions: * Bleeding Management: Continue to monitor the amount of vaginal bleeding. If you experience large clots, heavy bleeding, or soaking more than one pad per hour, please seek medical attention. * Start norethindrone 5 mg twice a day; * For your condition, norethindrone is being used to help control your vaginal bleeding and reduce the risk of further blood loss. It's important to take this medication as prescribed to help manage your symptoms. * Follow up as planned * Gynecology Appointment: You have a telehealth appointment with your pantograph ii engraver today at 2:00 PM. Please make sure you are available and have a quiet space for the call. * chemical research worker at [facility] next week as planned. * Lab Monitoring: You will need to follow up for blood tests (H&H) as instructed. If there are any concerns with your hemoglobin levels or if you experience further issues, your pantograph ii engraver will provide further recommendations. Stand Alone Forms: Portal Information, Nursing Discharge Form Referrals: Demetria Pineda NP [Primary Care Provider, Medicine] Referral Note: 1 week post hospitalization for vaginal bleeding. Activity:: Activity as Tolerated Equipment/Supplies:: No Equipment Needed Diet:: As Tolerated Discharge Orders Discharge Orders: Discharge Order (Routine); Ordered 10/31/25 Ordered By: Scarlett Reyes DS: Summary Time Spent with Patient providing and/or coordinating discharge services: Greater than 30 minutes Status at Discharge Functional status at discharge: independent ambulation Overall status at discharge: patient is progressing back to baseline Mental Status: mental status grossly normal Speech and Movement: speech and movement normal Mood: congruent mood Affect: normal affect Exam Narrative Exam Narrative: Gen: Awake and alert, in no apparent distress HEENT: Non-icteric sclera Neck: Supple Lungs: Lung sounds clear and equal bilaterally without wheezes, rhonchi, rales; Reg rate, and work of breathing. CV: Strong pulses, RRR, no murmur Abdomen: Non-distended, soft, nontender to palpation without rigidity, rebound, or guarding. MSK: Moves 4 extremities without apparent limitation in ROM. No peripheral edema Skin: Visualized skin without rashes, cyanosis. Neuro: Normal Gait, no obvious focal deficits or facial asymmetry. Speaks in full, clear sentences. Psych: Appropriate for situation. Psych Mental Status: mental status grossly normal Speech and Movement: speech and movement normal Mood: congruent mood Affect: normal affect DS: Data Vitals/I&O Vitals and I&O: Vital Signs Temperature 37.5 C 10/31/25 07:30 Temperature Source Tympanic 10/31/25 07:30 Pulse 92 H 10/31/25 07:30 Pulse Rhythm Regular 10/30/25 23:40 Pulse 82 10/30/25 23:24 Respiratory Rate 18 10/31/25 07:30 Respiratory Effort Normal, Non-Labored 10/30/25 23:40 Respiratory Depth Normal 10/30/25 23:40 Respiratory Pattern Normal 10/30/25 23:40 Blood Pressure 123/59 L 10/31/25 07:30 Blood Pressure Mean 80 10/31/25 07:30 Blood Pressure Position Sitting 10/30/25 18:36 Pulse Oximetry 94 10/31/25 07:30 Oxygen Delivery Method Room Air 10/31/25 07:30 Oxygen Flow Rate 0 10/31/25 07:30 Pain Level 2 10/31/25 09:44 Intake & Output 10/30/25 10/30/25 10/31/25 11:59 23:59 11:59 Intake Total 500 / 500 Balance 500 / 500 Weight 77.065 kg 77 kg Intake: IV 500 / 500 Other: Urine Color [place] Urine Appearance Clear Cloudy Comment no bleeding noticed. Stool Size Moderate Stool Characteristics Formed Data Completed and Pending Pending Labs at Discharge: 10/30/25 10/30/25 10/30/25 19:13 20:15 21:38 WBC 12.23 H RBC 3.86 L Hgb 11.7 8.2 L D Hct 36.2 25.7 L MCV 94 MCH 30.3 MCHC 32.3 RDW 12.7 Plt Count 218 MPV 10.8 Immature Gran % 0.4 Neutrophils % 90.5 Lymphocytes % 4.7 Monocytes % 4.1 Eosinophils % 0.1 Basophils % 0.2 Nucleated RBC % 0.0 Absolute Neutrophils 11.07 H Absolute Lymphocytes 0.57 L Absolute Monocytes 0.50 Absolute Eosinophils 0.01 Absolute Basophils 0.02 PT 10.3 INR 1.0 APTT 23.8 Sodium 140 Potassium 4.2 Chloride 103 Carbon Dioxide 27.2 Anion Gap 9.8 BUN 20 Creatinine 0.82 Est GFR (CKD-EPI 2020) 66.36 Glucose 134 H Calcium 8.8 Magnesium 1.8 Total Bilirubin 0.5 AST 15 ALT 9 L Alkaline Phosphatase 78 Troponin I 19 15 Total Protein 7.0 Albumin 4.1 ABO/Rh A Positive Blood Type Recheck A Positive Antibody Screen NEGATIVE 10/30/25 10/31/25 21:59 04:07 WBC 8.35 RBC 3.19 L Hgb 9.8 L Hct 29.8 L MCV 93 MCH 30.7 MCHC 32.9 RDW 12.9 Plt Count 184 MPV 10.6 Immature Gran % 0.4 Neutrophils % 69.7 Lymphocytes % 20.0 Monocytes % 7.7 Eosinophils % 1.8 Basophils % 0.4 Nucleated RBC % 0.0 Absolute Neutrophils 5.83 Absolute Lymphocytes 1.67 Absolute Monocytes 0.64 Absolute Eosinophils 0.15 Absolute Basophils 0.03 PT INR APTT Sodium 141 Potassium 3.7 Chloride 104 Carbon Dioxide 28.8 Anion Gap 8.2 BUN 17 Creatinine 0.69 Est GFR (CKD-EPI 2020) 80.99 Glucose 103 Calcium 7.9 L Magnesium Total Bilirubin 0.4 AST 13 ALT 8 L Alkaline Phosphatase 67 Troponin I Cancelled Total Protein 5.7 Albumin 3.4 ABO/Rh Blood Type Recheck Antibody Screen PFSH All Active Problems (Updated 10/30/25 @ 23:22 by Alcides Lim MD) Anemia (Chronic) Endometrial cancer (Acute ~09/2025) PMB (postmenopausal bleeding) (Acute ~08/2025) 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 Mass of right ovary (Acute ~08/2025) Endometrial mass (Acute ~08/2025) Post-menopausal atrophic vaginitis (Acute) Genitourinary bleeding (Acute ~08/2025) Flank pain (Acute) Hematuria (Acute) Onychomycosis (Acute) Toe pain, left (Acute) Toe pain, right (Acute) Nail dystrophy (Acute) Bilateral leg edema (Acute) Hypercholesterolemia with LDL greater than 190 mg/dL (Chronic ~2014) Urge incontinence of urine (Chronic ~01/2022) Incontinence briefs (size XL); uses 1 per day Pre-diabetes (Chronic ~08/2021) 2018 6%; 2020 5.6% Elevated blood-pressure reading without diagnosis of hypertension (Acute ~08/2021) Osteoarthritis (Chronic 06/04/15) neck, spine, hands Medical History Left lower lobe pulmonary nodule (~01/2023) No f/u needed; stable [id number] COVID (~11/06/22) Sensorineural hearing loss (SNHL) of both ears Amplification b/l Macular degeneration [place] 10/2021 Rapid heart beat Stress incontinence of urine Abnormal auditory perception (01/11/17) 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 Rojas cystoscopy negative 2015 Recommended repeat UA annually & repeat workup if persistent 3-5 years NEG UA 2021 NEG UA 2022 Other hyperlipidemia (06/20/15) LDL >190; CV risk 16.7%, declines meds Stasis dermatitis of both legs (06/04/15) Umbilical hernia (06/04/15) Gen Surg recommends surgery, but pt wants to wait Arthritis Neck, hands, back BMI 34.0-34.9,adult Surgical History History of tonsillectomy and adenoidectomy Tonsillectomy 1945 Excision, Pilonidal Cyst 1960 Extraction of cataract (07/16/15) B/L Dr. Rae. Right eye with intraocular lens implant Family History Mother , Pulmonary Fibrosis at age 97. Diabetes Osteoporosis Arthritis Constipation Asthma Anxiety Hypertension Cancer Hyperlipidemia Father , Cancer; bowel (suspected) at age 64. Diabetes Asthma Cancer Maternal Grandmother Diabetes Paternal Grandfather Diabetes Social History Smoking/Tobacco Use Status: Never Smoking risk assessment performed?: Yes Alcohol Intake: never Drug use: Never Adopted: No Caregiver/Support person: No Foster care: No Housing: house Number of Children: 0 number of grandchildren: 0 Communication Needs: Hard of Hearing and Corrective Lenses Education Level: college Details: Bachelor's Degree Do you need help understanding health information?: Rarely Pets and animals: No (1) Sexually active: No Do you think of yourself as: straight/heterosexual Current gender identity: female What is your relationship status?: never Do you belong to any clubs or organized social groups?: no Panel score (0-1 are the most socially isolated patients): 0 What type of physical activity do you participate in: irregular exercise Shea/Yarsanism: Taoist Special shea needs: No Seatbelt use: always Drive intox or ride w/intox airport driver: No Do you feel safe at home: Yes Do you feel safe in your relationship?: Yes Time Spent with Patient Time Spent with Patient: <45 minutes Time was spent: preparing to see the patient(eg.review tests), ordering medications,tests, procedures, referring, communicating with other health floor care specialist, indepentently interpreting results, counseling the patient and care coordination
[2025-10-31 11:33] VITALS: BP 106/50; PULSE 75; RESP 16; TEMP 37.6; O2SAT 93
--- NOTE | 2025-10-31 11:58 | PDOC.CMDIS ---
Date of service: 10/31/25 Time of Service: 11:58 LACE Index Scoring Tool Questions: Length of Stay (in days): 1 Was the patient admitted via the E.D.?: Yes Comorbidities: Any Tumor E.D. Visits: 1 Answers: Total Score: 7 Risk of Readmission: Low Risk Care Management Discharge Plan Reason for Hospitalization: Vaginal Bleed Discharge Plan: Suzy will be discharged home with no services indicated. It is recommended she follow up with her community providers, oncology, and discharge plan of care. CM requested a palliative care consult for Suzy can be seen outpatient. Suzy will be transported home via her supportive neighbors. Patient/Family Education Needs: Review of discharge instructions, activity, limitations, and plan of care. Discuss ask me three.
--- NOTE | 2025-10-31 13:45 | CHAPLAIN ---
Suzy was sitting up in bed when I visited. She said she is feeling better than when she arrived yesterday. Suzy was very pleasant and easily engaged in conversation. She told me her immediate family members have , as have her closest friends. Suzy said she has wonderful neighbors who look out for her and have been in touch.
== END 2025-10-31 14:12 | disposition home or self-care (01) ==
LOC: ER 22:43 → MS 23:41
PROVIDERS: Admitting Provider Hospitalist; Emergency Provider Emergency Medicine; PCP Nurse Practitioner Adult Health; Responsible Provider Nurse Practitioner Family; Visit Provider Hospitalist
DX: N95.0 Postmenopausal bleeding (principal); D64.9 Anemia, unspecified; C54.1 Malignant neoplasm of endometrium; K82.8 Other specified diseases of gallbladder; Z66 Do not resuscitate; N83.201 Unspecified ovarian cyst, right side; E78.00 Pure hypercholesterolemia, unspecified; N39.41 Urge incontinence; R73.03 Prediabetes; H90.3 Sensorineural hearing loss, bilateral; I87.2 Venous insufficiency (chronic) (peripheral); H04.123 Dry eye syndrome of bilateral lacrimal glands; Z79.899 Other long term (current) drug therapy
CPT/HCPCS: 00123; 36415; 71275; 74177; 80053; 86850; 86900; 86901; 96361; 96374; 99285; 83735; 84484; 85014; 85018; 85025; 85610; 85730; 99222; 99238; G0378; J3490